=== PATIENT | male | born 1960 | race Caucasian/White ===

== ENCOUNTER 2018-01-15 19:23 | Inpatient (IN) | payer MEDICAID, OTHER ==
--- NOTE | 2018-01-15 20:09 | C.PDOC ---
History Of Present Illness Patient presents to the ER with a complaint of left leg pain. Patient has a Hx of iliac artery aneurysm, he had an MRA done in August that showed it has gotten bigger. Due to increased left leg pain, patient decided to come in for evaluation. Denies fever, chills, nausea, or vomiting. Time Seen by Provider: 01/15/18 20:09 Chief Complaint (Nursing): Medical Clearance History Per: Patient History/Exam Limitations: no limitations Onset/Duration Of Symptoms: Days Current Symptoms Are (Timing): Still Present Severity: Moderate Pain Scale Rating Of: 4 Reports Recently: Treated By A Physician Recent travel outside of the [place]: No Additional History Per: Family Past Medical History Reviewed: Historical Data, Nursing Documentation, Vital Signs Vital Signs: Last Vital Signs Temp 98 F 01/15/18 19:31 Pulse 88 01/15/18 19:31 Resp 18 01/15/18 19:31 BP 116/85 01/15/18 19:31 Pulse Ox 98 01/15/18 21:21 - Medical History PMH: Arthritis, HTN, Hypercholesterolemia, Hyperlipidemia Surgical History: No Surg Hx - [facility] Procedures APPLICATION OF SPLINT (05/15/07) Family History: States: No Known Family Hx - Social History Hx Alcohol Use: No Hx Substance Use: No - Immunization History Hx Tetanus Toxoid Vaccination: No Hx Influenza Vaccination: Yes Hx Pneumococcal Vaccination: No Review Of Systems Constitutional: Negative for: Fever, Chills Cardiovascular: Negative for: Chest Pain, Palpitations Respiratory: Negative for: Cough, Shortness of Breath Gastrointestinal: Negative for: Nausea, Vomiting Musculoskeletal: Positive for: Leg Pain Neurological: Negative for: Weakness, Numbness Physical Exam - Physical Exam Appears: Non-toxic Skin: Warm, Dry Head: Normacephalic Eye(s): bilateral: Normal Inspection Oral Mucosa: Moist Neck: Supple Chest: Symmetrical, No Tenderness Cardiovascular: Rhythm Regular Respiratory: No Rales, No Rhonchi, No Wheezing Gastrointestinal/Abdominal: Soft, No Tenderness, Other (Obese) Back: No CVA Tenderness Male Genital: No Inguinal Tenderness, No Inguinal Swelling Extremity: Capillary Refill (<2 seconds) Extremity: Bilateral: Atraumatic, Normal Color And Temperature, Normal ROM Pulses: Left Femoral: Normal, Right Femoral: Normal, Left Dorsalis Pedis: Normal , Right Dorsalis Pedis: Normal Neurological/Psych: Oriented x3, Normal Speech, Normal Cognition, Other (No focal deficits) Gait: Steady ED Course And Treatment - Laboratory Results Result Diagrams: 01/15/18 20:09 01/15/18 21:01 O2 Sat by Pulse Oximetry: 98 (Room air) Pulse Ox Interpretation: Normal Progress Note: CT abd/pel, EKG, CXR, blood work, and urinalysis ordered. Disposition Discussed With : Raman Bridges Comment: accepted the pt on his service and took over the care at 9:50 PM Doctor Will See Patient In The: Hospital Counseled Patient/Family Regarding: Studies Performed, Diagnosis - Disposition Disposition: HOSPITALIZED Disposition Time: 20:09 Condition: FAIR Forms: [facility] ([place]) - POA Present On Arrival: None - Clinical Impression Clinical Impression: Leg pain, Iliac aneurysm - Scribe Statement The provider has reviewed the documentation as recorded by the Scribe mJ Whitlock All medical record entries made by the Scribe were at my direction and personally dictated by me. I have reviewed the chart and agree that the record accurately reflects my personal performance of the history, physical exam, medical decision making, and the department course for this patient. I have also personally directed, reviewed, and agree with the discharge instructions and disposition. Decision To Admit - Pt Status Changed To: Hospital Disposition Of: Inpatient - Admit Certification Admit to Inpatient:: After my assessment, the patient will require hospitalization for at least two midnights. This is because of the severity of symptoms shown, intensity of services needed, and/or the medical risk in this patient being treated as an outpatient. - InPatient: Physician Admission Certification: I certify that this patient requires 2 or more midnights of care for the following reason:: After my assessment, the patient will require hospitalization for at least two midnights. This is because of the severity of symptoms shown, intensity of services needed, and/or the medical risk in this patient being treated as an outpatient. - . Bed Request Type: Regular Admitting Physician: Raman Bridges Patient Diagnosis: Leg pain, Iliac aneurysm
[2018-01-15 20:24] LABS: BASO # 0.1 K/uL (0.0-0.2); BASO % 0.9 % (0.0-2.0); EOS # 0.3 K/uL (0.0-0.7); EOS % 3.9 % (0.0-4.0); HEMOGLOBIN 14.9 g/dL (12.0-18.0); LYMPH # 2.2 K/uL (1.0-4.3); LYMPH % 26.4 % (20.0-40.0); MEAN CELL VOLUME 91.6 fL (80.0-94.0); MEAN CORPUSCULAR HGB CONC 33.9 g/dL (33.0-37.0); MEAN PLATELET VOLUME 8.1 fL (7.2-11.7); MONO # 0.7 K/uL (0.0-0.8); MONO % 8.3 % (0.0-10.0); NEUT # 5.1 K/uL (1.8-7.0); NEUT % 60.5 % (50.0-75.0); RBC 4.82 Mil/uL (4.40-5.90); RED CELL DISTRIBUTION WIDTH 13.8 % (11.5-14.5); WHITE BLOOD COUNT 8.5 K/uL (4.8-10.8)
[2018-01-15 20:33] LABS: PROTHROMBIN TIME 11.4 SECONDS (9.7-12.2)
[2018-01-15] MEDS ORDERED: DiphenhydrAMINE 50 mg/ml Inj IVP STA (20:55)
[2018-01-15 21:04] LABS: SQUAMOUS EPITHIAL < 1 /hpf (0-5); URINE BILIRUBIN NEGATIVE (NEGATIVE); URINE BLOOD 2+ (NEGATIVE); URINE CLARITY Clear (Clear); URINE COLOR Yellow (YELLOW); URINE GLUCOSE (UA) NORMAL (Normal); URINE LEUKOCYTE ESTERASE NEG Leu/uL (Negative); URINE PROTEIN NEGATIVE (NEGATIVE); URINE UROBILINOGEN NORMAL mg/dL (0.2-1.0)
[2018-01-15] MEDS ORDERED: DiphenhydrAMINE 50 mg/ml Inj ONE (21:07)
[2018-01-15 21:11] LABS: ALB/GLOB RATIO 1.8 (1.0-2.1); ALBUMIN 4.5 g/dL (3.5-5.0); ALT/SGPT 77 U/L (21-72); AST/SGOT 38 U/L (17-59); BLOOD UREA NITROGEN 18 mg/dL (9-20); CALCIUM 9.2 mg/dl (8.6-10.4); GFR AFRICAN-AMERICAN > 60; GFR NON-AFRICAN AMERICAN > 60
[2018-01-15] MEDS ORDERED: Iodixanol 320 mg/ml 150 ml Bottle IV ONE (21:21)
[2018-01-16] MEDS ORDERED: Iodixanol 320 MG/ML 100 ML BOTTLE IV ONE (09:11)
[2018-01-16] MEDS ORDERED: Iodixanol 320 mg/ml 150 ml Bottle IV ONE (09:12)
--- NOTE | 2018-01-16 09:18 | CP.PCM.PN ---
Subjective - Date & Time of Evaluation Date of Evaluation: 01/16/18 Time of Evaluation: 09:17 - Subjective Subjective: patient seen discussed with Dr Burch historty of dye reaction pretreatment began last night for CTA today Objective - Vital Signs/Intake and Output Vital Signs (last 24 hours): Temp Pulse Resp BP Pulse Ox 97.8 F 70 20 146/89 95 01/16/18 08:30 01/16/18 08:30 01/16/18 08:30 01/16/18 08:30 01/16/18 08:30 - Medications Medications: Current Medications Home Med (Ropinirole Hcl [Ropinirole Hcl]) 0.5 mg PO DAILY [facility] Losartan Potassium (Cozaar) 25 mg PO DAILY [facility] Metoprolol Tartrate (Lopressor) 75 mg PO BID [facility] Pneumococcal Polyvalent Vaccine (Pneumovax 23 Vaccine) 0.5 ml IM .ONCE ONE Stop: 01/18/18 10:01 Rosuvastatin Calcium (Crestor) 40 mg PO HS [facility] - Labs Labs: 01/15/18 20:09 01/15/18 21:01 PT 11.4 SECONDS (9.7-12.2) 01/15/18 20:09 INR 1.0 01/15/18 20:09 APTT 34 SECONDS (21-34) 01/15/18 20:09
--- NOTE | 2018-01-16 10:04 | RAD ---
Date of service: 01/15/2018 PROCEDURE: CHEST RADIOGRAPH, 1 VIEW HISTORY: SOB COMPARISON: None available. FINDINGS: LUNGS: Clear. PLEURA: No pneumothorax or pleural fluid seen. CARDIOVASCULAR: No radiographic findings to suggest acute or significant cardiovascular disease. OSSEOUS STRUCTURES: No significant abnormalities. VISUALIZED UPPER ABDOMEN: Normal. OTHER FINDINGS: None. IMPRESSION: No active disease. Concordant results with the preliminary interpretation rendered by the emergency department physician procedure.
--- NOTE | 2018-01-16 11:58 | CT ---
Date of service: 01/16/2018 PROCEDURE: CT Angiography Abdomen, Pelvis and Lower Extremity with Contrast HISTORY: iliac aneurysm COMPARISON: None. TECHNIQUE: Technique: CT angiography of the abdomen, pelvis and bilateral lower extremities performed in the arterial phase of enhancement. Coronal and sagittal reformats, and well as rotating MIP images of the vessels generated at the workstation. Intravenous contrast dose: 150 milliliters Visipaque 320 Radiation dose: Total exam DLP = 2785.42 MGy-cm. This CT exam was performed using one or more of the following dose reduction techniques: Automated exposure control, adjustment of the mA and/or kV according to patient size, and/or use of iterative reconstruction technique. FINDINGS: CT ANGIOGRAPHY: ABDOMINAL AORTA:: MAJOR AORTIC BRANCHES: Celiac [place]: Unremarkable. Superior mesenteric artery: Unremarkable. Inferior mesenteric artery: Unremarkable. Renal arteries: Unremarkable. PELVIC ARTERIES: Right Common Iliac: Unremarkable. Right External Iliac: Unremarkable Right Internal Iliac: Unremarkable. Left Common Iliac: There is a fusiform aneurysm of the left common iliac artery that is 6 centimeters in length and 5 centimeters in diameter. The aneurysm begins 2 centimeters from the bifurcation and terminates 2 centimeters from the left internal iliac artery. Aneurysm partially thrombosed. Left External Iliac: Unremarkable. Left Internal Iliac: Unremarkable. RIGHT LOWER EXTREMITY ARTERIES: Right Common Femoral: Common femoral artery measures 10 millimeters. Right Superficial Femoral: Superficial femoral artery measures 9.5 millimeter and is otherwise unremarkable. Right Profunda Femoris: Unremarkable. Right Popliteal:Popliteal artery is diffusely enlarged measuring 10 millimeters. Right Anterior Tibial: Unremarkable. Right Tibioperoneal Trunk: Unremarkable. Right Posterior Tibial: Unremarkable. Right Peroneal: Unremarkable. Right dorsalis pedis : Unremarkable. LEFT LOWER EXTREMITY ARTERIES: Left Common Femoral: Common femoral artery measures 10 millimeters. Otherwise unremarkable Left Superficial Femoral: SFA measures 9. Otherwise unremarkable Left Profunda Femoris: Unremarkable. Left Popliteal: Diffusely enlarged measuring 10 millimeters. Otherwise unremarkable. Left Anterior Tibial: Unremarkable. Left Tibioperoneal Trunk: Unremarkable. Left Posterior Tibial: Unremarkable. Left Peroneal: Unremarkable. Left Dorsalis pedis: Unremarkable. NON-ANGIOGRAPHIC ASPECT OF THE EXAM: LOWER THORAX: Unremarkable. LIVER: Unremarkable. No gross lesion or ductal dilatation. GALLBLADDER AND BILE DUCTS: Unremarkable. PANCREAS: Unremarkable. No gross lesion or ductal dilatation. SPLEEN: Unremarkable. ADRENALS: Unremarkable. No mass. KIDNEYS AND URETERS: Unremarkable. No hydronephrosis. No solid mass. STOMACH AND BOWEL: Unremarkable. No obstruction. No gross mural thickening. APPENDIX: Normal appendix. PERITONEUM: Unremarkable. No free fluid. No free air. LYMPH NODES: Unremarkable. No enlarged lymph nodes. BLADDER: Unremarkable. REPRODUCTIVE: Unremarkable. BONES: No acute fracture. OTHER FINDINGS: None. IMPRESSION: CT ANGIOGRAM ABDOMEN/ PELVIS: 1. Large fusiform aneurysm of the left common iliac artery beginning 2 centimeters the bifurcation. The aneurysm measures 5 centimeters in diameter by 6 centimeters in length and terminates 2 centimeters from the internal iliac artery. 2. The right common iliac external iliac artery are unremarkable. 3. The abdominal was unremarkable. CT ANGIOGRAM RIGHT LOWER EXTREMITY: 1. Unremarkable CT angiogram right lower extremity. There is no focal aneurysm. The SFA and popliteal artery diffusely enlarged as detailed. Three-vessel runoff. CT ANGIOGRAM LEFT LOWER EXTREMITY: 1. Unremarkable CT angiogram left lower extremity. There is no focal aneurysm. The SFA and popliteal artery diffusely enlarged as detailed. Three-vessel runoff.
--- NOTE | 2018-01-16 13:29 | CP.PCM.CON ---
<Lisa StevenMary - Last Filed: 01/16/18 13:20> History of Present Illness - History of Present Illness History of Present Illness: Consult Note for Dr. Burch for iliac artery aneurysm HPI: Patient is a 57 year old male with PMHx of iliac artery aneurysm, HTN, HLD , and arthritis who was sent to the ER by his PMD. Patient was not made aware of the reason he was being sent to the ER. Patient denied feeling unwell prior to hospitalization. However, patient admits to feeling diaphoretic and weak after presenting to the hospital. Patient says that he has constant pain in his left inguinal area that radiates to his ipsilateral hip. He describes the pain as a muscle spasm. He has had this complaint since his hip replacement 4-5 years ago after he was diagnosed with hip arthritis. Patient says the pain only goes away when he walks and gets worse when he sits for a while. Patient also admits to an episode of L arm numbness 4 weeks ago and then a more severe episode 3 weeks ago. He says the numbness extended from his wrist to his shoulder. Today patient has no complaints. He says at rest he has no pain in his leg. Patient denies headache, chest pain, shortness of breath, abdominal pain, nausea, vomiting, constipation, diarrhea, or dysuria. PMHx: iliac artery aneurysm, arthritis, Hypertension, Hyperlipidemia Allergies:Iodine (anaphylactic) Medications: Patient unable to recall the names of the medications but says he takes 3-5 pills every morning for hypertension, cholesterol, and muscle relaxants. PSHx: Hip replacement (2013) Hernia repair (at 2 years old) FamHx:father: CAD and of unknown cancer age 75. SocHx: stopped smoking 30-35 years ago, used to smoke 2-3 packs/day. 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 Review of Systems - Constitutional Constitutional: absent: Chills, Fever - EENT Eyes: absent: Blurred Vision Nose/Mouth/Throat: absent: Nasal Congestion - Cardiovascular Cardiovascular: absent: Chest Pain, Dyspnea, Leg Edema, Palpitations - Respiratory Respiratory: absent: Cough, Wheezing - Gastrointestinal Gastrointestinal: absent: Abdominal Pain, Constipation, Diarrhea, Nausea, Vomiting - Genitourinary Genitourinary: absent: Dysuria - Musculoskeletal Musculoskeletal: Myalgias (left thigh muscle cramping and pain ) - Integumentary Integumentary: absent: Rash Past Patient History - Infectious Disease Hx of Infectious Diseases: None - Past Medical History & Family History Past Medical History?: Yes - Past Social History Smoking Status: Former Smoker - CARDIAC Hx Cardiac Disorders: Yes Hx Hypercholesterolemia: Yes Hx Hypertension: Yes - PULMONARY Hx Respiratory Disorders: No - NEUROLOGICAL Hx Neurological Disorder: Yes Other/Comment: RESTLESS LEG SYNDROME,,,,, - HEENT Hx HEENT Problems: No - RENAL Hx Chronic Kidney Disease: No - ENDOCRINE/METABOLIC Hx Endocrine Disorders: No - HEMATOLOGICAL/ONCOLOGICAL Hx Blood Disorders: No - INTEGUMENTARY Hx Dermatological Problems: No - MUSCULOSKELETAL/RHEUMATOLOGICAL Hx Musculoskeletal Disorders: Yes Hx Arthritis: Yes Hx Falls: No - GASTROINTESTINAL Hx Gastrointestinal Disorders: No - GENITOURINARY/GYNECOLOGICAL Hx Genitourinary Disorders: No - PSYCHIATRIC Hx Psychophysiologic Disorder: No Hx Substance Use: No - SURGICAL HISTORY Hx Surgeries: Yes Hx Orthopedic Surgery: Yes (BILAT HIPS 2012 & 2014) - ANESTHESIA Hx Anesthesia: Yes Hx Anesthesia Reactions: No Has any member of the family had a problem w/ anesthesia?: No Meds Allergies/Adverse Reactions: Allergies Allergy/AdvReac Type Severity Reaction Status Date / Time iodine Allergy Severe ANAPHYLAXIS Verified 01/15/18 19:27 - Medications Medications: Current Medications Home Med (Ropinirole Hcl [Ropinirole Hcl]) 0.5 mg PO DAILY [facility] Losartan Potassium (Cozaar) 25 mg PO DAILY [facility] Last Admin: 01/16/18 09:43 Dose: 25 mg Metoprolol Tartrate (Lopressor) 75 mg PO BID [facility] Last Admin: 01/16/18 09:43 Dose: 75 mg Pneumococcal Polyvalent Vaccine (Pneumovax 23 Vaccine) 0.5 ml IM .ONCE ONE Stop: 01/18/18 10:01 Rosuvastatin Calcium (Crestor) 40 mg PO [facility] Physical Exam - Constitutional Appears: Non-toxic, No Acute Distress - Head Exam Head Exam: ATRAUMATIC, NORMAL INSPECTION, NORMOCEPHALIC - Eye Exam Eye Exam: EOMI, Normal appearance - ENT Exam ENT Exam: Mucous Membranes Moist - Neck Exam Neck exam: Positive for: Normal Inspection - Respiratory Exam Respiratory Exam: Clear to Auscultation Bilateral, NORMAL BREATHING PATTERN. absent: Rales, Rhonchi, Wheezes, Respiratory Distress, Stridor - Cardiovascular Exam Cardiovascular Exam: REGULAR RHYTHM, RRR, +S1, +S2 - GI/Abdominal Exam GI & Abdominal Exam: Normal Bowel Sounds, Soft. absent: Tenderness - Extremities Exam Extremities exam: Positive for: normal inspection. Negative for: pedal edema, tenderness - Psychiatric Exam Psychiatric exam: Normal Affect, Normal Mood - Skin Skin Exam: Intact, Normal Color, Warm Results - Vital Signs Recent Vital Signs: Last Vital Signs Temp 97.8 F 01/16/18 08:30 Pulse 70 01/16/18 08:30 Resp 20 01/16/18 08:30 BP 146/89 01/16/18 09:43 Pulse Ox 95 01/16/18 08:30 - Labs Result Diagrams: 01/15/18 20:09 01/15/18 21:01 Labs: Laboratory Results - last 24 hr 01/15/18 01/15/18 01/15/18 20:09 20:09 20:45 WBC 8.5 RBC 4.82 Hgb 14.9 Hct 44.1 MCV 91.6 MCH 31.0 MCHC 33.9 RDW 13.8 Plt Count 255 MPV 8.1 Neut % (Auto) 60.5 Lymph % (Auto) 26.4 [place] % (Auto) 8.3 Eos % (Auto) 3.9 Baso % (Auto) 0.9 Neut # (Auto) 5.1 Lymph # (Auto) 2.2 [place] # (Auto) 0.7 Eos # (Auto) 0.3 Baso # (Auto) 0.1 PT 11.4 INR 1.0 APTT 34 Sodium Potassium Chloride Carbon Dioxide Anion Gap BUN Creatinine Est GFR ( Amer) Est GFR (Non-Af Amer) Random Glucose Calcium Total Bilirubin AST ALT Alkaline Phosphatase Total Protein Albumin Globulin Albumin/Globulin Ratio Urine Color Yellow Urine Clarity Clear Urine pH 6.0 Ur Specific [place] 1.021 Urine Protein Negative Urine Glucose (UA) Normal Urine Ketones Negative Urine Blood 2+ H Urine Nitrate Negative Urine Bilirubin Negative Urine Urobilinogen Normal Ur Leukocyte Esterase Neg Urine WBC (Auto) 1 Urine RBC (Auto) 11 H Ur Squamous Epith Cells < 1 01/15/18 21:01 WBC RBC Hgb Hct MCV MCH MCHC RDW Plt Count MPV Neut % (Auto) Lymph % (Auto) [place] % (Auto) Eos % (Auto) Baso % (Auto) Neut # (Auto) Lymph # (Auto) [place] # (Auto) Eos # (Auto) Baso # (Auto) PT INR APTT Sodium 145 Potassium 4.3 Chloride 104 Carbon Dioxide 29 Anion Gap 16 BUN 18 Creatinine 1.1 Est GFR ( Amer) > 60 Est GFR (Non-Af Amer) > 60 Random Glucose 103 Calcium 9.2 Total Bilirubin 0.9 AST 38 ALT 77 H Alkaline Phosphatase 78 Total Protein 7.0 Albumin 4.5 Globulin 2.5 Albumin/Globulin Ratio 1.8 Urine Color Urine Clarity Urine pH Ur Specific [place] Urine Protein Urine Glucose (UA) Urine Ketones Urine Blood Urine Nitrate Urine Bilirubin Urine Urobilinogen Ur Leukocyte Esterase Urine WBC (Auto) Urine RBC (Auto) Ur Squamous Epith Cells Assessment & Plan - Assessment and Plan (Free Text) Assessment: Left Common Iliac Artery Aneurysm CTA: 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 aneurysm measures 5cm in diameter by 6cm in length and terminates 2 cm from the internal iliac artery f/u ECHO Surgery, Dr. Ivan consulted Discussed with Dr. Burch <Ze Burch - Last Filed: 01/17/18 00:32> Meds - Medications Medications: Current Medications Home Med (Ropinirole Hcl [Ropinirole Hcl]) 0.5 mg PO DAILY [facility] Losartan Potassium (Cozaar) 25 mg PO DAILY [facility] Last Admin: 01/16/18 09:43 Dose: 25 mg Metoprolol Tartrate (Lopressor) 75 mg PO BID [facility] Last Admin: 01/16/18 17:41 Dose: 75 mg Pneumococcal Polyvalent Vaccine (Pneumovax 23 Vaccine) 0.5 ml IM .ONCE ONE Stop: 01/18/18 10:01 Rosuvastatin Calcium (Crestor) 40 mg PO HS [facility] Last Admin: 01/16/18 21:23 Dose: 40 mg Results - Vital Signs Recent Vital Signs: Last Vital Signs Temp 98 F 01/16/18 23:48 Pulse 64 01/16/18 23:48 Resp 20 01/16/18 23:48 BP 127/80 01/16/18 23:48 Pulse Ox 97 01/16/18 23:48 - Labs Result Diagrams: 01/15/18 20:09 01/15/18 21:01 Assessment & Plan - Assessment and Plan (Free Text) Assessment: Patient seen and evaluated personally by me For stress test in am
--- NOTE | 2018-01-16 20:44 | CP.PCM.HP ---
History of Present Illness - History of Present Illness History of Present Illness: Chief complaint: Left leg pain HPI: 57-year-old male with a history of hypertension, hypercholesteremia, arthritis, bilateral hip replacement, leg pain, and the left leg cramps more than the right leg, came to the opposite the worsening pain in the left leg, and lower abdomen area. Patient has no chest pain. He denies any nausea vomiting. No GI symptoms. Past medical history: Hypertension hypercholesterolemia restless leg syndrome, arthritis. Surgical history: Bilateral hip replacement. History hernia repair. Medications reviewed from the chart. Allergies no known drug allergy except intravenous iodine Family history: Father had a history of colon cancer. Mother history of renal failure. Personal history: Nonsmoker, nonalcoholic, full-time working. Functional capacity is normal. Review of system: Noted from the chart. Denies any nausea vomiting, but currently complaining of headache, did not sleep well last night, no chest pain, no shortness of breath noted, denies any diarrhea, but left lower quadrant pain, and also in the leg pain noted on the left side. On examination: Vital signs stable. Chest bilateral good air entry. Regular heart sound nontender abdomen Next images 1+ pedal edema bilaterally noted Patient's labs reviewed Nonspecific CAT scan of the abdomen and pelvis showing evidence of large fusiform aneurysm involving the left common iliac artery beginning at 2 cm at the bifurcation measures 5 cm in diameter by 6 cm in length terminates at the 2 cm from the iliac artery internal. Otherwise unremarkable. Also enlargement of the SFA and popliteal artery on the right side noted Assessment and recommendation: 57-year-old male with a history of hypertension and hypercholesteremia osteoarthritis bilateral hip replacement admitted to the hospital with ongoing pain in the left lower quadrant. Secondary to possibly aneurysm involving the left iliac artery. Patient is currently being seen by the vascular surgery and cardiology. Blood pressure control. IV fluid. Possible intervention surgically. Cardiac clearance. DVT GI prophylaxis will follow-up the patient Present on Admission - Present on Admission Any Indicators Present on Admission: No History of DVT/PE: No History of Uncontrolled Diabetes: No Urinary Catheter: No Decubitus Ulcer Present: No Past Patient History - Infectious Disease Hx of Infectious Diseases: None - Past Medical History & Family History Past Medical History?: Yes - Past Social History Smoking Status: Former Smoker - CARDIAC Hx Cardiac Disorders: Yes Hx Hypercholesterolemia: Yes Hx Hypertension: Yes - PULMONARY Hx Respiratory Disorders: No - NEUROLOGICAL Hx Neurological Disorder: Yes Other/Comment: RESTLESS LEG SYNDROME,,,,, - HEENT Hx HEENT Problems: No - RENAL Hx Chronic Kidney Disease: No - ENDOCRINE/METABOLIC Hx Endocrine Disorders: No - HEMATOLOGICAL/ONCOLOGICAL Hx Blood Disorders: No - INTEGUMENTARY Hx Dermatological Problems: No - MUSCULOSKELETAL/RHEUMATOLOGICAL Hx Musculoskeletal Disorders: Yes Hx Arthritis: Yes Hx Falls: No - GASTROINTESTINAL Hx Gastrointestinal Disorders: No - GENITOURINARY/GYNECOLOGICAL Hx Genitourinary Disorders: No - PSYCHIATRIC Hx Psychophysiologic Disorder: No Hx Substance Use: No - SURGICAL HISTORY Hx Surgeries: Yes Hx Orthopedic Surgery: Yes (BILAT HIPS 2013 & 2014) - ANESTHESIA Hx Anesthesia: Yes Hx Anesthesia Reactions: No Has any member of the family had a problem w/ anesthesia?: No Meds Home Medications: Home Medication List Medication Instructions Recorded Confirmed Type Ropinirole HCl 0.5 mg PO DAILY #30 tablet 01/16/18 Rx Allergies/Adverse Reactions: Allergies Allergy/AdvReac Type Severity Reaction Status Date / Time iodine Allergy Severe ANAPHYLAXIS Verified 01/15/18 19:27 Results - Vital Signs Recent Vital Signs: Last Vital Signs Temp 98.3 F 01/16/18 16:00 Pulse 71 01/16/18 16:00 Resp 20 01/16/18 16:00 BP 142/80 01/16/18 17:41 Pulse Ox 93 L 01/16/18 16:00 - Labs Result Diagrams: 01/15/18 20:09 01/15/18 21:01 Labs: Laboratory Results - last 24 hr 01/15/18 01/15/18 20:45 21:01 Sodium 145 Potassium 4.3 Chloride 104 Carbon Dioxide 29 Anion Gap 16 BUN 18 Creatinine 1.1 Est GFR ( Amer) > 60 Est GFR (Non-Af Amer) > 60 Random Glucose 103 Calcium 9.2 Total Bilirubin 0.9 AST 38 ALT 77 H Alkaline Phosphatase 78 Total Protein 7.0 Albumin 4.5 Globulin 2.5 Albumin/Globulin Ratio 1.8 Urine Color Yellow Urine Clarity Clear Urine pH 6.0 Ur Specific [place] 1.021 Urine Protein Negative Urine Glucose (UA) Normal Urine Ketones Negative Urine Blood 2+ H Urine Nitrate Negative Urine Bilirubin Negative Urine Urobilinogen Normal Ur Leukocyte Esterase Neg Urine WBC (Auto) 1 Urine RBC (Auto) 11 H Ur Squamous Epith Cells < 1
--- NOTE | 2018-01-17 07:17 | CP.PCM.PN ---
Subjective - Date & Time of Evaluation Date of Evaluation: 01/17/18 Time of Evaluation: 06:30 - Subjective Subjective: Vascular Surgery Note for Dr. Ivan Patient seen and examined at bedside. No acute event overnight. Patient is NPO for stress test today with Cardiology. He has no complaints at this time. Objective - Vital Signs/Intake and Output Vital Signs (last 24 hours): Temp Pulse Resp BP Pulse Ox 98 F 64 20 127/80 97 01/16/18 23:48 01/16/18 23:48 01/16/18 23:48 01/16/18 23:48 01/16/18 23:48 - Medications Medications: Current Medications Home Med (Ropinirole Hcl [Ropinirole Hcl]) 0.5 mg PO DAILY [facility] Losartan Potassium (Cozaar) 25 mg PO DAILY [facility] Last Admin: 01/16/18 09:43 Dose: 25 mg Metoprolol Tartrate (Lopressor) 75 mg PO BID [facility] Last Admin: 01/16/18 17:41 Dose: 75 mg Pneumococcal Polyvalent Vaccine (Pneumovax 23 Vaccine) 0.5 ml IM .ONCE ONE Stop: 01/18/18 10:01 Rosuvastatin Calcium (Crestor) 40 mg PO HS [facility] Last Admin: 01/16/18 21:23 Dose: 40 mg - Labs Labs: 01/15/18 20:09 01/15/18 21:01 PT 11.4 SECONDS (9.7-12.2) 01/15/18 20:09 INR 1.0 01/15/18 20:09 APTT 34 SECONDS (21-34) 01/15/18 20:09 - Constitutional Appears: No Acute Distress - Head Exam Head Exam: ATRAUMATIC, NORMOCEPHALIC - Eye Exam Eye Exam: EOMI, Normal appearance - ENT Exam ENT Exam: Mucous Membranes Moist - Respiratory Exam Respiratory Exam: NORMAL BREATHING PATTERN - Cardiovascular Exam Cardiovascular Exam: REGULAR RHYTHM - GI/Abdominal Exam GI & Abdominal Exam: Soft, Normal Bowel Sounds. 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 Moncho Guzman PGY2
[2018-01-17 07:57] LABS: BASO % 0.2 % (0.0-2.0); HEMOGLOBIN 15.3 g/dL (12.0-18.0); LYMPH # 1.8 K/uL (1.0-4.3); LYMPH % 13.8 % (20.0-40.0); MEAN CELL VOLUME 91.6 fL (80.0-94.0); MEAN CORPUSCULAR HEMOGLOBIN 31.5 pg (27.0-31.0); MEAN CORPUSCULAR HGB CONC 34.4 g/dL (33.0-37.0); MEAN PLATELET VOLUME 8.2 fL (7.2-11.7); MONO # 0.7 K/uL (0.0-0.8); MONO % 5.7 % (0.0-10.0); NEUT # 10.3 K/uL (1.8-7.0); NEUT % 80.3 % (50.0-75.0); RBC 4.87 Mil/uL (4.40-5.90); RED CELL DISTRIBUTION WIDTH 13.9 % (11.5-14.5); WHITE BLOOD COUNT 12.8 K/uL (4.8-10.8)
[2018-01-17 08:15] LABS: ALB/GLOB RATIO 1.8 (1.0-2.1); ALBUMIN 4.4 g/dL (3.5-5.0); ALT/SGPT 62 U/L (21-72); AST/SGOT 27 U/L (17-59); BLOOD UREA NITROGEN 21 mg/dL (9-20); CALCIUM 9.2 mg/dl (8.6-10.4); GFR AFRICAN-AMERICAN > 60; GFR NON-AFRICAN AMERICAN > 60
--- NOTE | 2018-01-17 12:02 | CARD ---
APPROVED REPORT Date of service: 01/16/2018 EXAM: Two-dimensional and M-mode echocardiogram with Doppler and color Doppler. INDICATION PVD 2D DIMENSIONS IVSd1.1 (0.7-1.1cm)LVDd4.4 (3.9-5.9cm) PWd1.0 (0.7-1.1cm)LVDs2.7 (2.5-4.0cm) FS (%) 38.8 %LVEF (%)69.4 (>50%) M-Mode DIMENSIONS Left Atrium (MM)3.12 (2.5-4.0cm)IVSd1.41 (0.7-1.1cm) Aortic Root4.36 (2.2-3.7cm)LVDd5.76 (4.0-5.6cm) Aortic Cusp Exc.2.22 (1.5-2.0cm)PWd1.10 (0.7-1.1cm) FS (%) 32 %LVDs3.94 (2.0-3.8cm) LVEF (%)59 (>50%) Mitral Valve MV E Dspyxuhc52.0cm/sMV A Kwpfshta46.6cm/sE/A ratio1.0 TDI E/Lateral E'0.0E/Medial E'0.0 Tricuspid Valve TR Peak Wfqtstyj474vn/sTR Peak Gr.75bpSgGQZK05itOa LEFT VENTRICLE The left ventricle is normal size. There is normal left ventricular wall thickness. The left ventricular function is normal. The left ventricular ejection fraction is within the normal range. No regional wall motion abnormalities noted. The left ventricular diastolic function is normal. No left ventricle thrombus noted on this study. There is no ventricular septal defect visualized. There is no left ventricular aneurysm. There is no mass noted in the left ventricle. RIGHT VENTRICLE The right ventricle is normal size. There is normal right ventricular wall thickness. The right ventricular systolic function is normal. ATRIA The left atrium size is normal. The right atrium size is normal. The interatrial septum is intact with no evidence for an atrial septal defect. AORTIC VALVE The aortic valve is normal in structure and function. No aortic regurgitation is present. There is no aortic valvular stenosis. There is no aortic valvular vegetation. MITRAL VALVE The mitral valve is normal in structure and function. There is no evidence of mitral valve prolapse. There is no mitral valve stenosis. Mitral regurgitation is mild. TRICUSPID VALVE The tricuspid valve is normal in structure and function. There is no tricuspid valve regurgitation noted. There is no tricuspid valve prolapse or vegetation. There is no tricuspid valve stenosis. PULMONIC VALVE The pulmonary valve is normal in structure and function. There is no pulmonic valvular regurgitation. There is no pulmonic valvular stenosis. GREAT VESSELS The aortic root is mildly enlarged. The ascending aorta is normal in size. The pulmonary artery is normal. The IVC is normal in size and collapses >50% with inspiration. PERICARDIAL EFFUSION The pericardium appears normal. There is no pleural effusion. <Conclusion> The left ventricular function is normal. The left ventricular ejection fraction is within the normal range. No regional wall motion abnormalities noted. Mitral regurgitation is mild. The aortic root is mildly enlarged.
--- NOTE | 2018-01-17 12:16 | CARD ---
APPROVED REPORT Date of service: 01/15/2018 EKG Measurement Heart [id number] <Conclusion> Normal sinus rhythm with sinus arrhythmia Normal ECG
--- NOTE | 2018-01-17 13:04 | CP.PCM.PN ---
<Lisa Steven - Last Filed: 01/17/18 12:59> Subjective - Date & Time of Evaluation Date of Evaluation: 01/17/18 Time of Evaluation: 10:00 - Subjective Subjective: PGY2- Progress Note for Dr. Burch Patient seen and examined at bedside. Patient in no acute distress. Patient denies headache, chest pain, shortness of breath, abdominal pain, nausea, vomiting, constipation, diarrhea, or dysuria. Objective - Vital Signs/Intake and Output Vital Signs (last 24 hours): Temp Pulse Resp BP Pulse Ox 97.5 F L 65 20 155/98 H 99 01/17/18 08:00 01/17/18 08:00 01/17/18 08:00 01/17/18 11:09 01/17/18 08:00 - Medications Medications: Current Medications Home Med (Ropinirole Hcl [Ropinirole Hcl]) 0.5 mg PO DAILY [facility] Losartan Potassium (Cozaar) 25 mg PO DAILY [facility] Last Admin: 01/17/18 11:10 Dose: 25 mg Metoprolol Tartrate (Lopressor) 75 mg PO BID [facility] Last Admin: 01/17/18 11:09 Dose: 75 mg Pneumococcal Polyvalent Vaccine (Pneumovax 23 Vaccine) 0.5 ml IM .ONCE ONE Stop: 01/18/18 10:01 Rosuvastatin Calcium (Crestor) 40 mg PO [facility] Last Admin: 01/16/18 21:23 Dose: 40 mg - Labs Labs: 01/17/18 07:47 01/17/18 07:47 PT 11.4 SECONDS (9.7-12.2) 01/15/18 20:09 INR 1.0 01/15/18 20:09 APTT 34 SECONDS (21-34) 01/15/18 20:09 - Additional Findings Additional findings: - Constitutional Appears: Non-toxic, No Acute Distress - Head Exam Head Exam: ATRAUMATIC, NORMAL INSPECTION, NORMOCEPHALIC - Eye Exam Eye Exam: EOMI, Normal appearance - ENT Exam ENT Exam: Mucous Membranes Moist - Neck Exam Neck exam: Positive for: Normal Inspection - Respiratory Exam Respiratory Exam: Clear to Auscultation Bilateral, NORMAL BREATHING PATTERN. absent: Rales, Rhonchi, Wheezes, Respiratory Distress, Stridor - Cardiovascular Exam Cardiovascular Exam: REGULAR RHYTHM, RRR, +S1, +S2 - GI/Abdominal Exam GI & Abdominal Exam: Normal Bowel Sounds, Soft. absent: Tenderness - Extremities Exam Extremities exam: Positive for: normal inspection. Negative for: pedal edema, tenderness - Psychiatric Exam Psychiatric exam: Normal Affect, Normal Mood - Skin Skin Exam: Intact, Normal Color, Warm Assessment and Plan - Assessment and Plan (Free Text) Assessment: Left Common Iliac Artery Aneurysm CTA: 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 aneurysm measures 5cm in diameter by 6cm in length and terminates 2 cm from the internal iliac artery Surgery, Dr. Ivan consulted - possible endovascular procedure on sunday pending medical optimization echo: left ventricular function is normal, left ventricular ejection fraction within normal range. no regional wall motion abnormalities, mitral regurg is mild. aortic root is mildly enlarged. stress test today Discussed with Dr. Burch <Ze Burch - Last Filed: 01/17/18 23:29> Objective - Vital Signs/Intake and Output Vital Signs (last 24 hours): Temp Pulse Resp BP Pulse Ox 98.5 F 65 20 122/74 95 01/17/18 16:00 01/17/18 16:00 01/17/18 16:00 01/17/18 17:19 01/17/18 16:00 Intake and Output: 01/17/18 01/18/18 18:59 06:59 Intake Total 480 Balance 480 - Medications Medications: Current Medications Home Med (Patient's Own Medication) 1 tab PO DAILY@2100 [facility] Last Admin: 01/17/18 21:20 Dose: 1 tab Losartan Potassium (Cozaar) 25 mg PO DAILY [facility] Last Admin: 01/17/18 11:10 Dose: 25 mg Metoprolol Tartrate (Lopressor) 75 mg PO BID [facility] Last Admin: 01/17/18 17:19 Dose: 75 mg Pneumococcal Polyvalent Vaccine (Pneumovax 23 Vaccine) 0.5 ml IM .ONCE ONE Stop: 01/18/18 10:01 Rosuvastatin Calcium (Crestor) 40 mg PO [facility] Last Admin: 01/17/18 21:18 Dose: 40 mg - Labs Labs: 01/17/18 07:47 01/17/18 07:47 PT 11.4 SECONDS (9.7-12.2) 01/15/18 20:09 INR 1.0 01/15/18 20:09 APTT 34 SECONDS (21-34) 01/15/18 20:09 Assessment and Plan - Assessment and Plan (Free Text) Assessment: Patient seen and evaluated personally me Plan of care d/w the certified medical transcriptionist and as documented Stress test: No evidence of stress induced ischemia
[2018-01-17] MEDS ORDERED: Patient's Own Medication - Tablet/Capusle PO SCH (14:00)
[2018-01-17] MEDS: Patient's Own Medication - Tablet/Capusle PO SCH (21:20)
--- NOTE | 2018-01-18 00:21 | CP.PCM.PN ---
Subjective - Date & Time of Evaluation Date of Evaluation: 01/17/18 Time of Evaluation: 19:00 - Subjective Subjective: Patient seen by escrow representative. Patient is medically cleared, had a stress test today. Discussed with the patient as well as the patient's family. Patient is initially not willing to have a surgical intervention, but finally he agreed to have intervention for the left iliac artery aneurysm. We will continue the current treatment glucose control and also blood pressure control will follow the Objective - Vital Signs/Intake and Output Vital Signs (last 24 hours): Temp Pulse Resp BP Pulse Ox 98.5 F 65 20 122/74 95 01/17/18 16:00 01/17/18 16:00 01/17/18 16:00 01/17/18 17:19 01/17/18 16:00 Intake and Output: 01/17/18 01/18/18 18:59 06:59 Intake Total 480 Balance 480 - Medications Medications: Current Medications Home Med (Patient's Own Medication) 1 tab PO DAILY@2100 [facility] Last Admin: 01/17/18 21:20 Dose: 1 tab Losartan Potassium (Cozaar) 25 mg PO DAILY [facility] Last Admin: 01/17/18 11:10 Dose: 25 mg Metoprolol Tartrate (Lopressor) 75 mg PO BID [facility] Last Admin: 01/17/18 17:19 Dose: 75 mg Pneumococcal Polyvalent Vaccine (Pneumovax 23 Vaccine) 0.5 ml IM .ONCE ONE Stop: 01/18/18 10:01 Rosuvastatin Calcium (Crestor) 40 mg PO [facility] Last Admin: 01/17/18 21:18 Dose: 40 mg - Labs Labs: 01/17/18 07:47 01/17/18 07:47 PT 11.4 SECONDS (9.7-12.2) 01/15/18 20:09 INR 1.0 01/15/18 20:09 APTT 34 SECONDS (21-34) 01/15/18 20:09
[2018-01-18] MEDS ORDERED: Pneumococcal 23-Valent Vaccine IM ONE (10:00)
[2018-01-18] MEDS: Patient's Own Medication - Tablet/Capusle PO SCH (21:25)
[2018-01-19 07:11] LABS: PROTHROMBIN TIME 11.4 SECONDS (9.7-12.2)
--- NOTE | 2018-01-19 07:44 | CP.PCM.PN ---
Subjective - Date & Time of Evaluation Date of Evaluation: 01/19/18 Time of Evaluation: 07:41 - Subjective Subjective: Vascular Surgery Progress note for Dr. Ivan Pt seen and examined this am at bedside no acute events overnight. Pt will stay in the hospital for iliac aneurism repair on sunday we discussed his iodine allergy and our pretreatment plans. Denies any chest pain, SOB, nausea vomiting or diarrhea. He is ambulating. No new complaints at this time. Objective - Vital Signs/Intake and Output Vital Signs (last 24 hours): Temp Pulse Resp BP Pulse Ox 98 F 60 20 131/83 98 01/18/18 23:48 01/18/18 23:48 01/18/18 23:48 01/18/18 23:48 01/18/18 23:48 Intake and Output: 01/19/18 01/19/18 06:59 18:59 Intake Total 480 Balance 480 - Medications Medications: Current Medications Home Med (Patient's Own Medication) 1 tab PO DAILY@2100 [facility] Last Admin: 01/18/18 21:25 Dose: 1 tab Losartan Potassium (Cozaar) 25 mg PO DAILY [facility] Last Admin: 01/18/18 09:59 Dose: 25 mg Metoprolol Tartrate (Lopressor) 75 mg PO BID [facility] Last Admin: 01/18/18 17:41 Dose: 75 mg Rosuvastatin Calcium (Crestor) 40 mg PO HS [facility] Last Admin: 01/18/18 21:07 Dose: 40 mg - Labs Labs: 01/17/18 07:47 01/17/18 07:47 PT 11.4 SECONDS (9.7-12.2) 01/19/18 07:00 INR 1.0 01/19/18 07:00 APTT 38 SECONDS (21-34) H 01/19/18 07:00 - Constitutional Appears: No Acute Distress - Head Exam Head Exam: ATRAUMATIC, NORMOCEPHALIC - Eye Exam Eye Exam: EOMI, Normal appearance - ENT Exam ENT Exam: Mucous Membranes Moist - Respiratory Exam Respiratory Exam: NORMAL BREATHING PATTERN - Cardiovascular Exam Cardiovascular Exam: REGULAR RHYTHM - GI/Abdominal Exam GI & Abdominal Exam: Soft, Normal Bowel Sounds. 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 Moncho Moulton PGY3
[2018-01-19] MEDS: Patient's Own Medication - Tablet/Capusle PO SCH (21:10)
--- NOTE | 2018-01-20 07:30 | CP.PCM.PN ---
Subjective - Date & Time of Evaluation Date of Evaluation: 01/19/18 Time of Evaluation: 14:10 - Subjective Subjective: Patient seen and examined at bedside. Patient in no acute distress. Patient denies headache, chest pain, shortness of breath, abdominal pain, nausea, vomiting, constipation, diarrhea, or dysuria. Physical Examination - Additional Findings Additional findings: - Constitutional Appears: Non-toxic, No Acute Distress - Head Exam Head Exam: ATRAUMATIC, NORMAL INSPECTION, NORMOCEPHALIC - Eye Exam Eye Exam: EOMI, Normal appearance - ENT Exam ENT Exam: Mucous Membranes Moist - Neck Exam Neck exam: Positive for: Normal Inspection - Respiratory Exam Respiratory Exam: Clear to Auscultation Bilateral, NORMAL BREATHING PATTERN. absent: Rales, Rhonchi, Wheezes, Respiratory Distress, Stridor - Cardiovascular Exam Cardiovascular Exam: REGULAR RHYTHM, RRR, +S1, +S2 - GI/Abdominal Exam GI & Abdominal Exam: Normal Bowel Sounds, Soft. absent: Tenderness - Extremities Exam Extremities exam: Positive for: normal inspection. Negative for: pedal edema, tenderness - Psychiatric Exam Psychiatric exam: Normal Affect, Normal Mood - Skin Skin Exam: Intact, Normal Color, Warm Objective - Vital Signs/Intake and Output Vital Signs (last 24 hours): Temp Pulse Resp BP Pulse Ox 98.0 F 68 20 129/67 96 01/20/18 00:00 01/20/18 00:00 01/20/18 00:00 01/20/18 00:00 01/20/18 00:00 Intake and Output: 01/20/18 01/20/18 06:59 18:59 Intake Total 600 Balance 600 - Medications Medications: Current Medications Home Med (Patient's Own Medication) 1 tab PO DAILY@2100 [facility] Last Admin: 01/19/18 21:10 Dose: 1 tab Losartan Potassium (Cozaar) 25 mg PO DAILY [facility] Last Admin: 01/19/18 10:35 Dose: 25 mg Metoprolol Tartrate (Lopressor) 75 mg PO BID [facility] Last Admin: 01/19/18 17:25 Dose: 75 mg Rosuvastatin Calcium (Crestor) 40 mg PO HS [facility] Last Admin: 01/19/18 21:10 Dose: 40 mg - Labs Labs: 01/17/18 07:47 01/17/18 07:47 PT 11.4 SECONDS (9.7-12.2) 01/19/18 07:00 INR 1.0 01/19/18 07:00 APTT 38 SECONDS (21-34) H 01/19/18 07:00 Assessment and Plan - Assessment and Plan (Free Text) Assessment: CTA: 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 aneurysm measures 5cm in diameter by 6cm in length and terminates 2 cm from the internal iliac artery Surgery, Dr. Ivan consulted - possible endovascular procedure on sunday echo: left ventricular function is normal, left ventricular ejection fraction within normal range. no regional wall motion abnormalities, mitral regurg is mild. aortic root is mildly enlarged. stress test Normal This patient assessed as low to intermediate risk for cardiac events for endovascular or open repair of his Left Iliac artery aneurysm
--- NOTE | 2018-01-20 12:23 | CP.PCM.PN ---
Subjective - Date & Time of Evaluation Date of Evaluation: 01/20/18 Time of Evaluation: 12:22 - Subjective Subjective: Vascular Surgery Progress note for Dr. Ivan Pt seen and examined this am at bedside no acute events overnight. Pt will stay in the hospital for iliac aneurism repair on sunday we discussed his iodine allergy and our pretreatment plans. Denies any chest pain, SOB, nausea vomiting or diarrhea. He is ambulating. No new complaints at this time. Objective - Vital Signs/Intake and Output Vital Signs (last 24 hours): Temp Pulse Resp BP Pulse Ox 98.1 F 73 20 118/75 96 01/20/18 08:31 01/20/18 08:31 01/20/18 08:31 01/20/18 09:24 01/20/18 08:31 Intake and Output: 01/20/18 01/20/18 06:59 18:59 Intake Total 600 Balance 600 - Medications Medications: Current Medications Diphenhydramine HCl (Benadryl) 50 mg IVP ONCE ONE Stop: 01/21/18 06:31 Home Med (Patient's Own Medication) 1 tab PO DAILY@2100 [facility] Last Admin: 01/19/18 21:10 Dose: 1 tab Losartan Potassium (Cozaar) 25 mg PO DAILY [facility] Last Admin: 01/20/18 09:25 Dose: 25 mg Methylprednisolone (Solu-Medrol) 40 mg IV ONCE ONE Stop: 01/20/18 18:31 Methylprednisolone (Solu-Medrol) 40 mg IV ONCE ONE Stop: 01/21/18 12:31 Methylprednisolone (Solu-Medrol) 40 mg IV ONCE ONE Stop: 01/21/18 06:31 Metoprolol Tartrate (Lopressor) 75 mg PO BID [facility] Rosuvastatin Calcium (Crestor) 40 mg PO HS [facility] Last Admin: 01/19/18 21:10 Dose: 40 mg - Labs Labs: 01/17/18 07:47 01/17/18 07:47 PT 11.4 SECONDS (9.7-12.2) 01/19/18 07:00 INR 1.0 01/19/18 07:00 APTT 38 SECONDS (21-34) H 01/19/18 07:00 - Constitutional Appears: Well, Non-toxic, No Acute Distress - Head Exam Head Exam: ATRAUMATIC, NORMAL INSPECTION, NORMOCEPHALIC - Respiratory Exam Respiratory Exam: Clear to Ausculation Bilateral, NORMAL BREATHING PATTERN - Cardiovascular Exam Cardiovascular Exam: REGULAR RHYTHM, +S1, +S2. absent: Murmur - GI/Abdominal Exam GI & Abdominal Exam: Soft, Normal Bowel Sounds. 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 Moncho Mayorga PGY1
[2018-01-20] MEDS ORDERED: MethylPREDNISolone 40 mg Vial IV ONE (18:30)
--- NOTE | 2018-01-20 18:56 | CP.PCM.PN ---
Subjective - Date & Time of Evaluation Date of Evaluation: 01/20/18 Time of Evaluation: 18:56 - Subjective Subjective: Patient comfortable. He is not in any distress. Eating well. He is n.p.o. for tonight. We will continue the current treatment. Objective - Vital Signs/Intake and Output Vital Signs (last 24 hours): Temp Pulse Resp BP Pulse Ox 98.2 F 69 20 127/87 95 01/20/18 16:00 01/20/18 16:00 01/20/18 16:00 01/20/18 18:07 01/20/18 16:00 Intake and Output: 01/20/18 01/20/18 06:59 18:59 Intake Total 600 Balance 600 - Medications Medications: Current Medications Diphenhydramine HCl (Benadryl) 50 mg IVP ONCE ONE Stop: 01/21/18 06:31 Home Med (Patient's Own Medication) 1 tab PO DAILY@2100 [facility] Last Admin: 01/19/18 21:10 Dose: 1 tab Losartan Potassium (Cozaar) 25 mg PO DAILY [facility] Last Admin: 01/20/18 09:25 Dose: 25 mg Methylprednisolone (Solu-Medrol) 40 mg IV ONCE ONE Stop: 01/21/18 12:31 Methylprednisolone (Solu-Medrol) 40 mg IV ONCE ONE Stop: 01/21/18 06:31 Metoprolol Tartrate (Lopressor) 75 mg PO BID [facility] Last Admin: 01/20/18 18:07 Dose: 75 mg Rosuvastatin Calcium (Crestor) 40 mg PO HS [facility] Last Admin: 01/19/18 21:10 Dose: 40 mg - Labs Labs: 01/17/18 07:47 01/17/18 07:47 PT 11.4 SECONDS (9.7-12.2) 01/19/18 07:00 INR 1.0 01/19/18 07:00 APTT 38 SECONDS (21-34) H 01/19/18 07:00
[2018-01-20] MEDS: Patient's Own Medication - Tablet/Capusle PO SCH (21:35)
--- NOTE | 2018-01-20 23:15 | CP.PCM.PN ---
Subjective - Date & Time of Evaluation Date of Evaluation: 01/20/18 Time of Evaluation: 10:20 - Subjective Subjective: Patient for OR tmorrow No cardiac events noted Objective - Vital Signs/Intake and Output Vital Signs (last 24 hours): Temp Pulse Resp BP Pulse Ox 98.2 F 69 20 127/87 95 01/20/18 16:00 01/20/18 16:00 01/20/18 16:00 01/20/18 18:07 01/20/18 16:00 Intake and Output: 01/20/18 01/21/18 18:59 06:59 Intake Total 600 Balance 600 - Medications Medications: Current Medications Diphenhydramine HCl (Benadryl) 50 mg IVP ONCE ONE Stop: 01/21/18 06:31 Home Med (Patient's Own Medication) 1 tab PO DAILY@2100 [facility] Last Admin: 01/20/18 21:35 Dose: 1 tab Losartan Potassium (Cozaar) 25 mg PO DAILY [facility] Last Admin: 01/20/18 09:25 Dose: 25 mg Methylprednisolone (Solu-Medrol) 40 mg IV ONCE ONE Stop: 01/21/18 12:31 Methylprednisolone (Solu-Medrol) 40 mg IV ONCE ONE Stop: 01/21/18 06:31 Metoprolol Tartrate (Lopressor) 75 mg PO BID [facility] Last Admin: 01/20/18 18:07 Dose: 75 mg Rosuvastatin Calcium (Crestor) 40 mg PO HS [facility] Last Admin: 01/20/18 21:35 Dose: 40 mg - Labs Labs: 01/17/18 07:47 01/17/18 07:47 PT 11.4 SECONDS (9.7-12.2) 01/19/18 07:00 INR 1.0 01/19/18 07:00 APTT 38 SECONDS (21-34) H 01/19/18 07:00
[2018-01-21] MEDS ORDERED: DiphenhydrAMINE 50 mg/ml Inj IVP ONE (06:30)
[2018-01-21] MEDS ORDERED: MethylPREDNISolone 40 mg Vial IV ONE ×2 (06:30→12:30)
[2018-01-21 07:23] LABS: MEAN CORPUSCULAR HEMOGLOBIN 31.8 pg (27.0-31.0); MEAN PLATELET VOLUME 8.3 fL (7.2-11.7); RBC 5.43 Mil/uL (4.40-5.90); RED CELL DISTRIBUTION WIDTH 13.4 % (11.5-14.5); WHITE BLOOD COUNT 9.4 K/uL (4.8-10.8)
[2018-01-21 07:30] LABS: HEMOGLOBIN 17.3 g/dL (12.0-18.0)
[2018-01-21 07:41] LABS: BLOOD UREA NITROGEN 22 mg/dL (9-20); CALCIUM 9.4 mg/dl (8.6-10.4); GFR AFRICAN-AMERICAN > 60; GFR NON-AFRICAN AMERICAN > 60
[2018-01-21] MEDS ORDERED: Papaverine Hydrochloride 30 mg/ml (2ml) ONE (07:47)
[2018-01-21] MEDS ORDERED: Iodixanol 320 MG/ML 200 ML BOTTLE IV ONE ×2 (07:47→10:02)
[2018-01-21] MEDS ORDERED: HEPARIN-NS 5,000 UNITS/500 ML 10,000 UNIT/1,000 ML BAG IV ONE ×3 (07:47→11:45)
[2018-01-21] MEDS ORDERED: ceFAZolin IV 2 gm in Dextrose 2 GM/50 ML BAG IVPB ONE (08:26)
[2018-01-21] MEDS ORDERED: Propofol 10 mg/ml Inj (20 ML) ONE (09:40)
[2018-01-21] MEDS ORDERED: Midazolam 2 MG/2 ML VIAL ONE (09:40)
[2018-01-21] MEDS ORDERED: Rocuronium 10 mg/ml (10 ml) ONE (09:40)
[2018-01-21] MEDS ORDERED: Neostigmine Methylsulfate 3mg/3ml Syringe IV ONE (12:32)
[2018-01-21] MEDS ORDERED: HYDROmorphone 0.5 mg/0.5 ml ISec IVP PRN (13:04)
--- NOTE | 2018-01-21 13:05 | PCM.SURG1 ---
Surgeon's Initial Post Op Note - Surgeon's Notes Surgeon: Dr. Ivan Hat Brim Curler: Dr. Moulton PGY3, Tracy MS3 Type of Anesthesia: General Endo Pre-Operative Diagnosis: Left common iliac aneurysm Operative Findings: Tortuous left common iliac placement of Main body [id number] each limb [id number], with proximal [id number] X120mm left iliac stent Post-Operative Diagnosis: Left common iliac aneurysm Operation Performed: Endovascular stent/grafting of distal aortic aneurism and bilateral iliac arteries. Specimen/Specimens Removed: None Estimated Blood Loss: EBL {In ML}: 750 Blood Products Given: N/A Drains Used: No Drains Post-Op Condition: Fair Date of Surgery/Procedure: 01/21/18 Time of Surgery/Procedure: 13:05
[2018-01-21 13:40] LABS: BASO % 0.1 % (0.0-2.0); LYMPH % 6.8 % (20.0-40.0); MEAN CELL VOLUME 92.2 fL (80.0-94.0); MEAN CORPUSCULAR HEMOGLOBIN 31.8 pg (27.0-31.0); MEAN CORPUSCULAR HGB CONC 34.5 g/dL (33.0-37.0); MEAN PLATELET VOLUME 8.2 fL (7.2-11.7); MONO # 0.2 K/uL (0.0-0.8); MONO % 1.6 % (0.0-10.0); NEUT # 13.3 K/uL (1.8-7.0); NEUT % 91.5 % (50.0-75.0); PLATELET COUNT 210 K/uL (130-400); RBC 4.66 Mil/uL (4.40-5.90); RED CELL DISTRIBUTION WIDTH 13.8 % (11.5-14.5)
[2018-01-21 13:54] LABS: HEMOGLOBIN 14.8 g/dL (12.0-18.0); WHITE BLOOD COUNT 14.6 K/uL (4.8-10.8)
[2018-01-21 14:10] LABS: ALB/GLOB RATIO 1.5 (1.0-2.1); ALBUMIN 3.8 g/dL (3.5-5.0); ALT/SGPT 68 U/L (21-72); AST/SGOT 23 U/L (17-59); BLOOD UREA NITROGEN 19 mg/dL (9-20); CALCIUM 8.7 mg/dl (8.6-10.4); GFR AFRICAN-AMERICAN > 60; GFR NON-AFRICAN AMERICAN > 60
[2018-01-21 14:16] LABS: BANDS 5 % (0-2); LYMPHOCYTE 8 % (20-40); MONOCYTE 2 % (0-10); NEUTROPHIL 85 % (50-75); TOTAL CELLS COUNTED 100
[2018-01-21 14:17] LABS: PLATELET ESTIMATE NORMAL (NORMAL)
--- NOTE | 2018-01-21 14:50 | CP.PCM.PN ---
<Lisa Steven - Last Filed: 01/21/18 14:46> Subjective - Date & Time of Evaluation Date of Evaluation: 01/21/18 Time of Evaluation: 15:30 - Subjective Subjective: PGY2- Progress Note for Dr. Burch Patient seen and examined s/p endovascular stent/ grafting of distal aortic aneurysm and bilateral iliac arteries POD#0. Patient denies any chest pain, shortness of breath, pain in groin, nausea, or vomiting. Objective - Vital Signs/Intake and Output Vital Signs (last 24 hours): Temp Pulse Resp BP Pulse Ox 98 F 73 20 105/67 96 01/21/18 08:00 01/21/18 08:00 01/21/18 08:00 01/21/18 09:14 01/21/18 08:00 Intake and Output: 01/21/18 01/21/18 06:59 18:59 Intake Total 600 2650 Output Total 500 Balance 600 2150 - Medications Medications: Current Medications Home Med (Patient's Own Medication) 1 tab PO DAILY@2100 [facility] Last Admin: 01/20/18 21:35 Dose: 1 tab Hydromorphone HCl (Dilaudid) 0.5 mg IVP Q5M PRN PRN Reason: Pain, severe (8-10) Stop: 01/21/18 15:04 Losartan Potassium (Cozaar) 25 mg PO DAILY [facility] Last Admin: 01/21/18 10:39 Dose: Not Given Metoprolol Tartrate (Lopressor) 75 mg PO BID [facility] Last Admin: 01/21/18 09:14 Dose: 75 mg Oxycodone/Acetaminophen (Percocet 5/325 Mg Tab) 1 tab PO Q6H PRN PRN Reason: Pain, moderate (4-7) Stop: 01/24/18 13:07 Rosuvastatin Calcium (Crestor) 40 mg PO HS [facility] Last Admin: 01/20/18 21:35 Dose: 40 mg - Labs Labs: 01/21/18 13:37 01/21/18 13:37 PT 11.4 SECONDS (9.7-12.2) 01/19/18 07:00 INR 1.0 01/19/18 07:00 APTT 38 SECONDS (21-34) H 01/19/18 07:00 - Constitutional Appears: Non-toxic, No Acute Distress - Head Exam Head Exam: ATRAUMATIC, NORMAL INSPECTION, NORMOCEPHALIC - Eye Exam Eye Exam: EOMI, Normal appearance - ENT Exam ENT Exam: Mucous Membranes Moist - Respiratory Exam Respiratory Exam: Clear to Ausculation Bilateral, NORMAL BREATHING PATTERN. absent: Rales, Rhonchi, Wheezes, Respiratory Distress, Stridor - Cardiovascular Exam Cardiovascular Exam: REGULAR RHYTHM, RRR, +S1, +S2 - GI/Abdominal Exam GI & Abdominal Exam: Soft, Normal Bowel Sounds. absent: Tenderness Additional comments: b/l inguinal dressings c/d/i, no hematoma, no pain - Extremities Exam Extremities Exam: Normal Inspection. absent: Pedal Edema, Tenderness - Neurological Exam Neurological Exam: Alert, Awake, Oriented x3 - Psychiatric Exam Psychiatric exam: Normal Affect, Normal Mood - Skin Skin Exam: Intact, Normal Color, Warm Assessment and Plan - Assessment and Plan (Free Text) Assessment: Left Common Iliac Artery Aneurysm s/p endovascular stent/ grafting of distal aortic aneurysm and bilateral iliac arteries on 01/21 CTA: 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 aneurysm measures 5cm in diameter by 6cm in length and terminates 2 cm from the internal iliac artery Surgery, Dr. Ivan consulted - possible endovascular procedure on sunday pending medical optimization echo: left ventricular function is normal, left ventricular ejection fraction within normal range. no regional wall motion abnormalities, mitral regurg is mild. aortic root is mildly enlarged. normal stress test ECHO 01/16/18: left ventricular function normal, left ventricular ejection fraction is within normal range, no regional wall motion abnormalities noted. Mitral regurg is mild. Aortic root is mildly enlarged Discussed with Dr. Burch <Ze Burch - Last Filed: 01/22/18 22:54> Objective - Vital Signs/Intake and Output Vital Signs (last 24 hours): Temp Pulse Resp BP Pulse Ox 98.2 F 77 19 105/62 96 01/22/18 20:00 01/22/18 20:00 01/22/18 20:00 01/22/18 20:00 01/22/18 20:00 Intake and Output: 01/22/18 01/23/18 18:59 06:59 Intake Total 824 120 Output Total 170 400 Balance 654 -280 - Medications Medications: Current Medications Home Med (Patient's Own Medication) 1 tab PO DAILY@2100 [facility] Last Admin: 01/22/18 21:27 Dose: 1 tab Losartan Potassium (Cozaar) 25 mg PO DAILY [facility] Last Admin: 01/22/18 10:23 Dose: Not Given Metoprolol Tartrate (Lopressor) 75 mg PO BID [facility] Last Admin: 01/22/18 17:55 Dose: Not Given Oxycodone/Acetaminophen (Percocet 5/325 Mg Tab) 1 tab PO Q6H PRN PRN Reason: Pain, moderate (4-7) Stop: 01/24/18 13:07 Last Admin: 01/22/18 22:35 Dose: 1 tab Rosuvastatin Calcium (Crestor) 40 mg PO HS [facility] Last Admin: 01/22/18 21:27 Dose: 40 mg - Labs Labs: 01/22/18 06:17 01/22/18 06:16 PT 11.4 SECONDS (9.7-12.2) 01/19/18 07:00 INR 1.0 01/19/18 07:00 APTT 38 SECONDS (21-34) H 01/19/18 07:00 Assessment and Plan - Assessment and Plan (Free Text) Assessment: Patient seen and evaluated personally by il Plan of care d/w the biomedical engineering director and as documented
--- NOTE | 2018-01-21 17:29 | RAD ---
Date of service: 01/21/2018 PROCEDURE: Intraoperative Fluoroscopy. HISTORY: LT. ILIAC ARTERY ANEURYSM FINDINGS: Fluoroscopic assistance was provided for endovascular triple a stenting.. Please refer to the operative report from LISSETH Rai. Total exam DLP: 380.99 (mGy)
[2018-01-21 20:35] LABS: HEMOGLOBIN 14.1 g/dL (12.0-18.0); MEAN CELL VOLUME 91.7 fL (80.0-94.0); MEAN CORPUSCULAR HEMOGLOBIN 30.5 pg (27.0-31.0); MEAN CORPUSCULAR HGB CONC 33.2 g/dL (33.0-37.0); MEAN PLATELET VOLUME 8.2 fL (7.2-11.7); RBC 4.64 Mil/uL (4.40-5.90); RED CELL DISTRIBUTION WIDTH 13.7 % (11.5-14.5); WHITE BLOOD COUNT 16.7 K/uL (4.8-10.8)
[2018-01-21] MEDS: Patient's Own Medication - Tablet/Capusle PO SCH (21:22)
[2018-01-21] MEDS: Oxycodone/Acetaminophen 5/325 mg Tab PO PRN (21:25)
[2018-01-22] MEDS: Oxycodone/Acetaminophen 5/325 mg Tab PO PRN ×2 (05:43→22:35)
[2018-01-22 06:29] LABS: BASO % 0.1 % (0.0-2.0); HEMOGLOBIN 13.1 g/dL (12.0-18.0); LYMPH % 7.3 % (20.0-40.0); MEAN CELL VOLUME 91.3 fL (80.0-94.0); MEAN CORPUSCULAR HEMOGLOBIN 31.7 pg (27.0-31.0); MEAN CORPUSCULAR HGB CONC 34.7 g/dL (33.0-37.0); MEAN PLATELET VOLUME 8.5 fL (7.2-11.7); MONO # 1.2 K/uL (0.0-0.8); NEUT # 11.4 K/uL (1.8-7.0); NEUT % 83.6 % (50.0-75.0); PLATELET COUNT 212 K/uL (130-400); RBC 4.14 Mil/uL (4.40-5.90); WHITE BLOOD COUNT 13.7 K/uL (4.8-10.8)
[2018-01-22 06:43] LABS: ALB/GLOB RATIO 1.5 (1.0-2.1); ALBUMIN 3.5 g/dL (3.5-5.0); ALT/SGPT 60 U/L (21-72); AST/SGOT 12 U/L (17-59); BLOOD UREA NITROGEN 23 mg/dL (9-20); CALCIUM 8.7 mg/dl (8.6-10.4); GFR AFRICAN-AMERICAN > 60; GFR NON-AFRICAN AMERICAN > 60
--- NOTE | 2018-01-22 07:01 | OP ---
PROCEDURE DATE: 01/21/2018 PREOPERATIVE DIAGNOSIS: Left common iliac artery aneurysm. PROCEDURE CARRIED OUT: Endovascular repair of left common iliac artery aneurysm with placement of Endologix AFX stent graft, measuring 22 x 40 and the main body length was 13 x 40. The one iliac extension which was an ovation graft extension was 120 mm along with 28 Flair at the bottom. At the end of the procedure, there was excellent flow without any evidence of endoleak or occlusion of any vessels. In addition, both the inferior mesenteric artery and both internal iliac arteries were widely patent. DESCRIPTION OF PROCEDURE: The patient was given general anesthesia at the patient's request. We planned to do the operation under local anesthesia. Percutaneous access was obtained from the left side. Due to a __curly Q___ fashion of the external iliac artery, it was so much difficult to maintain a wire up into the common iliac artery. We had to go through regular maneuvers including passage from the other side of the catheter, getting it around to eventually get this into position. Perclose devices were predeployed on both sides. After this had been done, we then deployed the graft just to the bifurcation, and pulled down it was finally obtained with a snare. So, basically a graft was deployed on the left side up to the level above the bifurcation, was then brought down on the bifurcation using the standard measures for the AFX device and released. After this had been secured in position, we were happy with it. We then deployed an Ovation graft in the left limb, tapering it down to go right to above the origin of the internal iliac artery on the left side. This had to be adjusted and it was adjusted well. Completion film showed no evidence of any leak. The inferior mesenteric artery was not visualized on the initial films. We then overinflated this area, and we were able to get it to visualize. So, at the end, we had flow of both external iliac arteries and into the inferior mesenteric artery. The Perclose device was then deployed in the groin, and the procedure was terminated. Blood loss for the procedure was 750 mL which is primarily due to the problems we had maintaining our access in the left groin with the contorted anatomy. But at the end of this, we had excellent flow, we had no evidence of dissection, we had no evidence of any endoleak, and the graft was seated at the aortic bifurcation extending into the right side without any leak and extending into the left side which was a target vessel down to the origin of the internal iliac artery with excellent coverage. So, operationcarried out, percutaneous placement of AFX bifurcated graft for treatment of a left common iliac artery aneurysm. Heparin was given and was not reversed at the end. Jarrell Ivan Jr., MD MTDD
[2018-01-22 08:33] LABS: BANDS 2 % (0-2); LYMPHOCYTE 5 % (20-40); MONOCYTE 9 % (0-10); NEUTROPHIL 84 % (50-75); PLATELET ESTIMATE NORMAL (NORMAL); TOTAL CELLS COUNTED 100
--- NOTE | 2018-01-22 12:16 | CP.PCM.CON ---
History of Present Illness - History of Present Illness History of Present Illness: 57 yo M w/ PMHx of HTN, HLD, arthritis, iliac artery aneurysm, B/L hip replacements, and chronic leg pain presented to ED w/ worsening left leg pain. Pt reports MRA in 08/26 shows iliac artery increasing in size. Pt is s/p endovascular stent/ grafting of distal aortic aneurysm and bilateral iliac arteries. Review of Systems - Constitutional Constitutional: absent: Chills, Headache - Cardiovascular Cardiovascular: absent: Chest Pain, Dyspnea, Edema - Respiratory Respiratory: absent: Cough, Dyspnea - Gastrointestinal Gastrointestinal: absent: Abdominal Pain, Nausea - Integumentary Integumentary: Other (pain at incision sites) Past Patient History - Infectious Disease Hx of Infectious Diseases: None - Past Medical History & Family History Past Medical History?: Yes - Past Social History Smoking Status: Former Smoker - CARDIAC Hx Cardiac Disorders: Yes Hx Hypercholesterolemia: Yes Hx Hypertension: Yes - PULMONARY Hx Respiratory Disorders: No - NEUROLOGICAL Hx Neurological Disorder: Yes Other/Comment: RESTLESS LEG SYNDROME,,,,, - HEENT Hx HEENT Problems: No - RENAL Hx Chronic Kidney Disease: No - ENDOCRINE/METABOLIC Hx Endocrine Disorders: No - HEMATOLOGICAL/ONCOLOGICAL Hx Blood Disorders: No - INTEGUMENTARY Hx Dermatological Problems: No - MUSCULOSKELETAL/RHEUMATOLOGICAL Hx Musculoskeletal Disorders: Yes Hx Arthritis: Yes Hx Falls: No - GASTROINTESTINAL Hx Gastrointestinal Disorders: No - GENITOURINARY/GYNECOLOGICAL Hx Genitourinary Disorders: No - PSYCHIATRIC Hx Psychophysiologic Disorder: No Hx Substance Use: No - SURGICAL HISTORY Hx Surgeries: Yes Hx Orthopedic Surgery: Yes (BILAT HIPS 2012 & 2014) - ANESTHESIA Hx Anesthesia: Yes Hx Anesthesia Reactions: No Has any member of the family had a problem w/ anesthesia?: No Meds Home Medications: Home Medication List Medication Instructions Recorded Confirmed Type Ropinirole HCl 0.5 mg PO DAILY #30 tablet 01/16/18 Rx Allergies/Adverse Reactions: Allergies Allergy/AdvReac Type Severity Reaction Status Date / Time iodine Allergy Severe ANAPHYLAXIS Verified 01/15/18 19:27 - Medications Medications: Current Medications Home Med (Patient's Own Medication) 1 tab PO DAILY@2100 [facility] Last Admin: 01/21/18 21:22 Dose: 1 tab Losartan Potassium (Cozaar) 25 mg PO DAILY [facility] Last Admin: 01/22/18 10:23 Dose: Not Given Metoprolol Tartrate (Lopressor) 75 mg PO BID [facility] Last Admin: 01/22/18 10:22 Dose: 75 mg Oxycodone/Acetaminophen (Percocet 5/325 Mg Tab) 1 tab PO Q6H PRN PRN Reason: Pain, moderate (4-7) Stop: 01/24/18 13:07 Last Admin: 01/22/18 05:43 Dose: 1 tab Rosuvastatin Calcium (Crestor) 40 mg PO [facility] Last Admin: 01/21/18 21:22 Dose: 40 mg Physical Exam - Constitutional Appears: Non-toxic, No Acute Distress - Head Exam Head Exam: ATRAUMATIC, NORMAL INSPECTION, NORMOCEPHALIC - Eye Exam Eye Exam: EOMI - ENT Exam ENT Exam: Mucous Membranes Moist - Respiratory Exam Respiratory Exam: Clear to Auscultation Bilateral. absent: Chest Wall Tenderness, Wheezes - Cardiovascular Exam Cardiovascular Exam: REGULAR RHYTHM - GI/Abdominal Exam GI & Abdominal Exam: Normal Bowel Sounds, Soft - Neurological Exam Neurological exam: Alert, Oriented x3 Results - Vital Signs Recent Vital Signs: Last Vital Signs Temp 97.7 F 01/22/18 08:00 Pulse 78 01/22/18 11:00 Resp 12 01/22/18 11:00 BP 109/69 01/22/18 10:40 Pulse Ox 94 L 01/22/18 11:00 - Labs Result Diagrams: 01/22/18 06:17 01/22/18 06:16 Labs: Laboratory Results - last 24 hr 01/21/18 01/21/18 01/21/18 13:37 13:37 20:31 WBC 14.6 H D 16.7 H RBC 4.66 4.64 Hgb 14.8 D 14.1 Hct 43.0 42.6 MCV 92.2 91.7 MCH 31.8 H 30.5 MCHC 34.5 33.2 RDW 13.8 13.7 Plt Count 210 235 MPV 8.2 8.2 Neut % (Auto) 91.5 H Lymph % (Auto) 6.8 L [place] % (Auto) 1.6 Eos % (Auto) 0.0 Baso % (Auto) 0.1 Neut # (Auto) 13.3 H Lymph # (Auto) 1.0 [place] # (Auto) 0.2 Eos # (Auto) 0.0 Baso # (Auto) 0.0 Neutrophils % (Manual) 85 H Band Neutrophils % 5 H Lymphocytes % (Manual) 8 L Monocytes % (Manual) 2 Platelet Estimate Normal RBC Morphology Normal Sodium 141 Potassium 4.0 Chloride 107 Carbon Dioxide 20 L Anion Gap 19 BUN 19 Creatinine 0.8 Est GFR ( Amer) > 60 Est GFR (Non-Af Amer) > 60 Random Glucose 168 H Calcium 8.7 Phosphorus Magnesium Total Bilirubin 1.5 H AST 23 ALT 68 Alkaline Phosphatase 62 Total Protein 6.3 Albumin 3.8 Globulin 2.5 Albumin/Globulin Ratio 1.5 01/22/18 01/22/18 06:16 06:17 WBC 13.7 H RBC 4.14 L Hgb 13.1 Hct 37.8 MCV 91.3 MCH 31.7 H MCHC 34.7 RDW 14.0 Plt Count 212 MPV 8.5 Neut % (Auto) 83.6 H Lymph % (Auto) 7.3 L [place] % (Auto) 9.0 Eos % (Auto) 0.0 Baso % (Auto) 0.1 Neut # (Auto) 11.4 H Lymph # (Auto) 1.0 [place] # (Auto) 1.2 H Eos # (Auto) 0.0 Baso # (Auto) 0.0 Neutrophils % (Manual) 84 H Band Neutrophils % 2 Lymphocytes % (Manual) 5 L Monocytes % (Manual) 9 Platelet Estimate Normal RBC Morphology Normal Sodium 140 Potassium 3.9 Chloride 103 Carbon Dioxide 27 Anion Gap 14 BUN 23 H Creatinine 1.0 Est GFR ( Amer) > 60 Est GFR (Non-Af Amer) > 60 Random Glucose 147 H Calcium 8.7 Phosphorus 3.4 Magnesium 2.2 Total Bilirubin 0.7 AST 12 L D ALT 60 Alkaline Phosphatase 56 Total Protein 6.0 L Albumin 3.5 Globulin 2.4 Albumin/Globulin Ratio 1.5 Assessment & Plan - Assessment and Plan (Free Text) Assessment: 57 yo M admitted to ICU s/p endovascular stent/ grafting of distal aortic aneurysm and bilateral iliac arteries w/ / Moncho. 1. Acute blood loss anemia -reported approximately 750ml of blood lost in OR -Hgb drop from 17.3-->14.8, continue to monitor 2. HTN -cozaar 25mg -metoprolol 75mg BID 3. HLD -crestor 40mg - Date & Time Date: 01/22/18 Time: 12:31
--- NOTE | 2018-01-22 12:37 | CP.CCUPN ---
<Cherelle Watson - Last Filed: 01/22/18 12:32> CCU Subjective - Physician Review Subjective (Free Text): 01/22/18 12:32 57 yo M w/ PMHx of HTN, HLD, arthritis, iliac artery aneurysm, B/L hip replacements, and chronic leg pain presented to ED w/ worsening left leg pain. Pt reports MRA in 08/26 shows iliac artery increasing in size. Pt is s/p endovascular stent/ grafting of distal aortic aneurysm and bilateral iliac arteries. Admitted to ICU for concerning acute blood loss anemia CCU Objective - Vital Signs / Intake & Output Vital Signs (Last 4 hours): Vital Signs Pulse Resp BP Pulse Ox 01/22/18 11:00 78 12 94 L 01/22/18 10:40 92 H 15 109/69 91 L 01/22/18 10:22 129/75 01/22/18 10:00 102 H 19 94 L 01/22/18 09:40 98 H 17 129/76 96 01/22/18 09:00 95 H 15 96 01/22/18 08:40 73 12 103/67 Intake and Output (Last 8hrs): Intake & Output 01/21/18 01/22/18 01/22/18 22:59 06:59 14:59 Intake Total 532 22 322 Output Total 610 350 120 Balance -78 -328 202 Weight 194 lb Intake: Intake, IV Amount 0 22 22 Left Hand 0 0 Right Forearm 0 22 22 Oral 532 300 Output: Urine 610 350 120 Urethral (Tan) 610 350 120 Urine, Voided 0 - Physical Exam Head: Positive for: Atraumatic, Normocephalic Extroacular Muscles: Positive for: EOMI Mouth: Positive for: Moist Mucous Membranes Respiratory/Chest: Positive for: Clear to Auscultation, Good Air Exchange. Negative for: Respiratory Distress Cardiovascular: Positive for: Regular Rate and Rhythm, Normal S1, S2. Negative for: Murmurs Abdomen: Positive for: Normal Bowel Sounds. Negative for: Tenderness, Distention Upper Extremity: Negative for: Cyanosis Lower Extremity: Negative for: Edema Neurological: Positive for: GCS=15 Skin: Positive for: Warm Psychiatric: Positive for: Alert, Oriented x 3 - Medications Active Medications: Active Medications Generic Name Dose Route Start Last Admin Trade Name Freq PRN Reason Stop Dose Admin Home Med 1 tab 01/17/18 21:00 01/21/18 21:22 Patient's Own Medication PO 1 tab DAILY@2100 [facility] Administration Losartan Potassium 25 mg 01/16/18 10:00 01/22/18 10:23 Cozaar PO Not Given DAILY [facility] Metoprolol Tartrate 75 mg 01/20/18 10:15 01/22/18 10:22 Lopressor PO 75 mg BID [facility] Administration Oxycodone/Acetaminophen 1 tab 01/21/18 13:06 01/22/18 05:43 Percocet 5/325 Mg Tab PO 01/24/18 13:07 1 tab Q6H PRN Administration Pain, moderate (4-7) Rosuvastatin Calcium 40 mg 01/16/18 22:00 01/21/18 21:22 Crestor PO 40 mg HS [facility] Administration - Patient Studies Lab Studies: Lab Studies 01/22/18 01/22/18 01/21/18 Range/Units 06:17 06:16 20:31 WBC 13.7 H 16.7 H (4.8-10.8) K/uL RBC 4.14 L 4.64 (4.40-5.90) Mil/uL Hgb 13.1 14.1 (12.0-18.0) g/dL Hct 37.8 42.6 (35.0-51.0) % MCV 91.3 91.7 (80.0-94.0) fL MCH 31.7 H 30.5 (27.0-31.0) pg MCHC 34.7 33.2 (33.0-37.0) g/dL RDW 14.0 13.7 (11.5-14.5) % Plt Count 212 235 (130-400) K/uL MPV 8.5 8.2 (7.2-11.7) fL Neut % (Auto) 83.6 H (50.0-75.0) % Lymph % (Auto) 7.3 L (20.0-40.0) % Faulk % (Auto) 9.0 (0.0-10.0) % Eos % (Auto) 0.0 (0.0-4.0) % Baso % (Auto) 0.1 (0.0-2.0) % Neut # (Auto) 11.4 H (1.8-7.0) K/uL Lymph # (Auto) 1.0 (1.0-4.3) K/uL Faulk # (Auto) 1.2 H (0.0-0.8) K/uL Eos # (Auto) 0.0 (0.0-0.7) K/uL Baso # (Auto) 0.0 (0.0-0.2) K/uL Neutrophils % (Manual) 84 H (50-75) % Band Neutrophils % 2 (0-2) % Lymphocytes % (Manual) 5 L (20-40) % Monocytes % (Manual) 9 (0-10) % Platelet Estimate Normal (NORMAL) RBC Morphology Normal Sodium 140 (132-148) mmol/L Potassium 3.9 (3.6-5.2) mmol/L Chloride 103 (98-107) mmol/L Carbon Dioxide 27 (22-30) mmol/L Anion Gap 14 (10-20) BUN 23 H (9-20) mg/dL Creatinine 1.0 (0.8-1.5) mg/dL Est GFR ( Amer) > 60 Est GFR (Non-Af Amer) > 60 Random Glucose 147 H (75-110) mg/dL Calcium 8.7 (8.6-10.4) mg/dl Phosphorus 3.4 (2.5-4.5) mg/dL Magnesium 2.2 (1.6-2.3) mg/dL Total Bilirubin 0.7 (0.2-1.3) mg/dL AST 12 L D (17-59) U/L ALT 60 (21-72) U/L Alkaline Phosphatase 56 (38-126) U/L Total Protein 6.0 L (6.3-8.3) g/dL Albumin 3.5 (3.5-5.0) g/dL Globulin 2.4 (2.2-3.9) gm/dL Albumin/Globulin Ratio 1.5 (1.0-2.1) 01/21/18 01/21/18 Range/Units 13:37 13:37 WBC 14.6 H D (4.8-10.8) K/uL RBC 4.66 (4.40-5.90) Mil/uL Hgb 14.8 D (12.0-18.0) g/dL Hct 43.0 (35.0-51.0) % MCV 92.2 (80.0-94.0) fL MCH 31.8 H (27.0-31.0) pg MCHC 34.5 (33.0-37.0) g/dL RDW 13.8 (11.5-14.5) % Plt Count 210 (130-400) K/uL MPV 8.2 (7.2-11.7) fL Neut % (Auto) 91.5 H (50.0-75.0) % Lymph % (Auto) 6.8 L (20.0-40.0) % Faulk % (Auto) 1.6 (0.0-10.0) % Eos % (Auto) 0.0 (0.0-4.0) % Baso % (Auto) 0.1 (0.0-2.0) % Neut # (Auto) 13.3 H (1.8-7.0) K/uL Lymph # (Auto) 1.0 (1.0-4.3) K/uL Faulk # (Auto) 0.2 (0.0-0.8) K/uL Eos # (Auto) 0.0 (0.0-0.7) K/uL Baso # (Auto) 0.0 (0.0-0.2) K/uL Neutrophils % (Manual) 85 H (50-75) % Band Neutrophils % 5 H (0-2) % Lymphocytes % (Manual) 8 L (20-40) % Monocytes % (Manual) 2 (0-10) % Platelet Estimate Normal (NORMAL) RBC Morphology Normal Sodium 141 (132-148) mmol/L Potassium 4.0 (3.6-5.2) mmol/L Chloride 107 (98-107) mmol/L Carbon Dioxide 20 L (22-30) mmol/L Anion Gap 19 (10-20) BUN 19 (9-20) mg/dL Creatinine 0.8 (0.8-1.5) mg/dL Est GFR ( Amer) > 60 Est GFR (Non-Af Amer) > 60 Random Glucose 168 H (75-110) mg/dL Calcium 8.7 (8.6-10.4) mg/dl Phosphorus (2.5-4.5) mg/dL Magnesium (1.6-2.3) mg/dL Total Bilirubin 1.5 H (0.2-1.3) mg/dL AST 23 (17-59) U/L ALT 68 (21-72) U/L Alkaline Phosphatase 62 (38-126) U/L Total Protein 6.3 (6.3-8.3) g/dL Albumin 3.8 (3.5-5.0) g/dL Globulin 2.5 (2.2-3.9) gm/dL Albumin/Globulin Ratio 1.5 (1.0-2.1) Laboratory Results - last 24 hr 01/21/18 01/21/18 01/21/18 13:37 13:37 20:31 WBC 14.6 H D 16.7 H RBC 4.66 4.64 Hgb 14.8 D 14.1 Hct 43.0 42.6 MCV 92.2 91.7 MCH 31.8 H 30.5 MCHC 34.5 33.2 RDW 13.8 13.7 Plt Count 210 235 MPV 8.2 8.2 Neut % (Auto) 91.5 H Lymph % (Auto) 6.8 L Faulk % (Auto) 1.6 Eos % (Auto) 0.0 Baso % (Auto) 0.1 Neut # (Auto) 13.3 H Lymph # (Auto) 1.0 Faulk # (Auto) 0.2 Eos # (Auto) 0.0 Baso # (Auto) 0.0 Neutrophils % (Manual) 85 H Band Neutrophils % 5 H Lymphocytes % (Manual) 8 L Monocytes % (Manual) 2 Platelet Estimate Normal RBC Morphology Normal Sodium 141 Potassium 4.0 Chloride 107 Carbon Dioxide 20 L Anion Gap 19 BUN 19 Creatinine 0.8 Est GFR ( Amer) > 60 Est GFR (Non-Af Amer) > 60 Random Glucose 168 H Calcium 8.7 Phosphorus Magnesium Total Bilirubin 1.5 H AST 23 ALT 68 Alkaline Phosphatase 62 Total Protein 6.3 Albumin 3.8 Globulin 2.5 Albumin/Globulin Ratio 1.5 01/22/18 01/22/18 06:16 06:17 WBC 13.7 H RBC 4.14 L Hgb 13.1 Hct 37.8 MCV 91.3 MCH 31.7 H MCHC 34.7 RDW 14.0 Plt Count 212 MPV 8.5 Neut % (Auto) 83.6 H Lymph % (Auto) 7.3 L Faulk % (Auto) 9.0 Eos % (Auto) 0.0 Baso % (Auto) 0.1 Neut # (Auto) 11.4 H Lymph # (Auto) 1.0 Faulk # (Auto) 1.2 H Eos # (Auto) 0.0 Baso # (Auto) 0.0 Neutrophils % (Manual) 84 H Band Neutrophils % 2 Lymphocytes % (Manual) 5 L Monocytes % (Manual) 9 Platelet Estimate Normal RBC Morphology Normal Sodium 140 Potassium 3.9 Chloride 103 Carbon Dioxide 27 Anion Gap 14 BUN 23 H Creatinine 1.0 Est GFR ( Amer) > 60 Est GFR (Non-Af Amer) > 60 Random Glucose 147 H Calcium 8.7 Phosphorus 3.4 Magnesium 2.2 Total Bilirubin 0.7 AST 12 L D ALT 60 Alkaline Phosphatase 56 Total Protein 6.0 L Albumin 3.5 Globulin 2.4 Albumin/Globulin Ratio 1.5 Review of Systems - Constitutional Constitutional: absent: Fever, Chills - Cardiovascular Cardiovascular: absent: Chest Pain, Diaphoresis, Dyspnea, Edema, Palpitations - Respiratory Respiratory: absent: Cough, Dyspnea - Gastrointestinal Gastrointestinal: absent: Abdominal Pain, Diarrhea, Nausea - Integumentary Integumentary: Other (incision site pain) Critical Care Progress Note - Nutrition Nutrition: Nutrition Category Date Time Status Regular Diet [DIET] Diets 01/21/18 Breakfast Active Assessment/Plan - Assessment and Plan (Free Text) Assessment: Assessment: 57 yo M admitted to ICU s/p endovascular stent/ grafting of distal aortic aneurysm and bilateral iliac arteries w/ / Moncho. 1. Acute blood loss anemia -reported approximately 750ml of blood lost in OR -Hgb drop from 17.3-->14.8, continue to monitor -Hgb stable 14.1--->13.1 overnight -no bleeding noted 2. HTN -cozaar 25mg -metoprolol 75mg BID 3. HLD -crestor 40mg Pt stable, no longer in need of critical care monitoring, [facility] - Date & Time Date: 01/22/18 Time: 12:37 <Sixto Laughlin - Last Filed: 01/22/18 17:01> CCU Objective - Vital Signs / Intake & Output Vital Signs (Last 4 hours): Vital Signs Temp Pulse Resp BP Pulse Ox 01/22/18 16:00 98.1 F 79 11 L 93 L 01/22/18 15:41 85 18 114/74 95 01/22/18 15:00 68 15 96 01/22/18 14:40 70 18 103/63 95 01/22/18 14:00 77 18 96 01/22/18 13:40 64 15 100/59 L 93 L Intake and Output (Last 8hrs): Intake & Output 01/22/18 01/22/18 01/22/18 06:59 14:59 22:59 Intake Total 22 562 262 Output Total 350 120 Balance -328 442 262 Weight 194 lb Intake: Intake, IV Amount 22 22 22 Left Hand 0 0 Right Forearm 22 22 22 Oral 540 240 Output: Urine 350 120 Urethral (Tan) 350 120 Urine, Voided 0 - Medications Active Medications: Active Medications Generic Name Dose Route Start Last Admin Trade Name Freq PRN Reason Stop Dose Admin Home Med 1 tab 01/17/18 21:00 01/21/18 21:22 Patient's Own Medication PO 1 tab DAILY@2100 [facility] Administration Losartan Potassium 25 mg 01/16/18 10:00 01/22/18 10:23 Cozaar PO Not Given DAILY [facility] Metoprolol Tartrate 75 mg 01/20/18 10:15 01/22/18 10:22 Lopressor PO 75 mg BID [facility] Administration Oxycodone/Acetaminophen 1 tab 01/21/18 13:06 01/22/18 05:43 Percocet 5/325 Mg Tab PO 01/24/18 13:07 1 tab Q6H PRN Administration Pain, moderate (4-7) Rosuvastatin Calcium 40 mg 01/16/18 22:00 01/21/18 21:22 Crestor PO 40 mg HS [facility] Administration - Patient Studies Lab Studies: Lab Studies 01/22/18 01/22/18 01/21/18 Range/Units 06:17 06:16 20:31 WBC 13.7 H 16.7 H (4.8-10.8) K/uL RBC 4.14 L 4.64 (4.40-5.90) Mil/uL Hgb 13.1 14.1 (12.0-18.0) g/dL Hct 37.8 42.6 (35.0-51.0) % MCV 91.3 91.7 (80.0-94.0) fL MCH 31.7 H 30.5 (27.0-31.0) pg MCHC 34.7 33.2 (33.0-37.0) g/dL RDW 14.0 13.7 (11.5-14.5) % Plt Count 212 235 (130-400) K/uL MPV 8.5 8.2 (7.2-11.7) fL Neut % (Auto) 83.6 H (50.0-75.0) % Lymph % (Auto) 7.3 L (20.0-40.0) % Faulk % (Auto) 9.0 (0.0-10.0) % Eos % (Auto) 0.0 (0.0-4.0) % Baso % (Auto) 0.1 (0.0-2.0) % Neut # (Auto) 11.4 H (1.8-7.0) K/uL Lymph # (Auto) 1.0 (1.0-4.3) K/uL Faulk # (Auto) 1.2 H (0.0-0.8) K/uL Eos # (Auto) 0.0 (0.0-0.7) K/uL Baso # (Auto) 0.0 (0.0-0.2) K/uL Neutrophils % (Manual) 84 H (50-75) % Band Neutrophils % 2 (0-2) % Lymphocytes % (Manual) 5 L (20-40) % Monocytes % (Manual) 9 (0-10) % Platelet Estimate Normal (NORMAL) RBC Morphology Normal Sodium 140 (132-148) mmol/L Potassium 3.9 (3.6-5.2) mmol/L Chloride 103 (98-107) mmol/L Carbon Dioxide 27 (22-30) mmol/L Anion Gap 14 (10-20) BUN 23 H (9-20) mg/dL Creatinine 1.0 (0.8-1.5) mg/dL Est GFR ( Amer) > 60 Est GFR (Non-Af Amer) > 60 Random Glucose 147 H (75-110) mg/dL Calcium 8.7 (8.6-10.4) mg/dl Phosphorus 3.4 (2.5-4.5) mg/dL Magnesium 2.2 (1.6-2.3) mg/dL Total Bilirubin 0.7 (0.2-1.3) mg/dL AST 12 L D (17-59) U/L ALT 60 (21-72) U/L Alkaline Phosphatase 56 (38-126) U/L Total Protein 6.0 L (6.3-8.3) g/dL Albumin 3.5 (3.5-5.0) g/dL Globulin 2.4 (2.2-3.9) gm/dL Albumin/Globulin Ratio 1.5 (1.0-2.1) Laboratory Results - last 24 hr 01/21/18 01/22/18 01/22/18 20:31 06:16 06:17 WBC 16.7 H 13.7 H RBC 4.64 4.14 L Hgb 14.1 13.1 Hct 42.6 37.8 MCV 91.7 91.3 MCH 30.5 31.7 H MCHC 33.2 34.7 RDW 13.7 14.0 Plt Count 235 212 MPV 8.2 8.5 Neut % (Auto) 83.6 H Lymph % (Auto) 7.3 L Faulk % (Auto) 9.0 Eos % (Auto) 0.0 Baso % (Auto) 0.1 Neut # (Auto) 11.4 H Lymph # (Auto) 1.0 Faulk # (Auto) 1.2 H Eos # (Auto) 0.0 Baso # (Auto) 0.0 Neutrophils % (Manual) 84 H Band Neutrophils % 2 Lymphocytes % (Manual) 5 L Monocytes % (Manual) 9 Platelet Estimate Normal RBC Morphology Normal Sodium 140 Potassium 3.9 Chloride 103 Carbon Dioxide 27 Anion Gap 14 BUN 23 H Creatinine 1.0 Est GFR ( Amer) > 60 Est GFR (Non-Af Amer) > 60 Random Glucose 147 H Calcium 8.7 Phosphorus 3.4 Magnesium 2.2 Total Bilirubin 0.7 AST 12 L D ALT 60 Alkaline Phosphatase 56 Total Protein 6.0 L Albumin 3.5 Globulin 2.4 Albumin/Globulin Ratio 1.5 Critical Care Progress Note - Nutrition Nutrition: Nutrition Category Date Time Status Regular Diet [DIET] Diets 01/21/18 Breakfast Active Attending/Attestation - Attestation I have personally seen and examined this patient.: Yes I have fully participated in the care of the patient.: Yes I have reviewed all pertinent clinical information: Yes Notes (Text): 01/22/18 17:00 Pt is s/p endovascular stent/ grafting of distal aortic aneurysm and bilateral iliac arteries. transfer to floor
--- NOTE | 2018-01-22 19:00 | CP.PCM.PN ---
Subjective - Date & Time of Evaluation Date of Evaluation: 01/22/18 Time of Evaluation: 06:00 - Subjective Subjective: Vascular Surgery Progress Note for Dr. Ivan This 57M was seen and evaluated this Am at bedside no acute events overnight. Patient denies any lower extremity pain, numbeness or motor deficits. He deneis any fevers chills chest pian nausea vomiting or diarrhea. Objective - Vital Signs/Intake and Output Vital Signs (last 24 hours): Temp Pulse Resp BP Pulse Ox 98.1 F 76 13 100/51 L 97 01/22/18 16:00 01/22/18 18:00 01/22/18 18:00 01/22/18 17:55 01/22/18 18:00 Intake and Output: 01/22/18 01/22/18 06:59 18:59 Intake Total 262 824 Output Total 710 170 Balance -448 654 - Medications Medications: Current Medications Home Med (Patient's Own Medication) 1 tab PO DAILY@2100 [facility] Last Admin: 01/21/18 21:22 Dose: 1 tab Losartan Potassium (Cozaar) 25 mg PO DAILY [facility] Last Admin: 01/22/18 10:23 Dose: Not Given Metoprolol Tartrate (Lopressor) 75 mg PO BID [facility] Last Admin: 01/22/18 17:55 Dose: Not Given Oxycodone/Acetaminophen (Percocet 5/325 Mg Tab) 1 tab PO Q6H PRN PRN Reason: Pain, moderate (4-7) Stop: 01/24/18 13:07 Last Admin: 01/22/18 05:43 Dose: 1 tab Rosuvastatin Calcium (Crestor) 40 mg PO [facility] Last Admin: 01/21/18 21:22 Dose: 40 mg - Labs Labs: 01/22/18 06:17 01/22/18 06:16 PT 11.4 SECONDS (9.7-12.2) 01/19/18 07:00 INR 1.0 01/19/18 07:00 APTT 38 SECONDS (21-34) H 01/19/18 07:00 - Constitutional Appears: Non-toxic, No Acute Distress - Head Exam Head Exam: ATRAUMATIC, NORMOCEPHALIC - Eye Exam Eye Exam: EOMI, Normal appearance - ENT Exam ENT Exam: Mucous Membranes Moist - Respiratory Exam Respiratory Exam: NORMAL BREATHING PATTERN - Cardiovascular Exam Cardiovascular Exam: +S1, +S2 - GI/Abdominal Exam GI & Abdominal Exam: Soft. absent: Distended, Firm, Guarding, Rigid, Tenderness - Extremities Exam Additional comments: Groin puncture sites with dressings that are clean dry and intact without any evidence of hematoma Assessment and Plan - Assessment and Plan (Free Text) Assessment: 47M POD#1 s/p endovascualr stending of aorta and bilateral common illiacs and doing well Pt cleared for D/C home from surgical perspective D/W Dr. Moncho Moulton PGY3
--- NOTE | 2018-01-22 21:17 | CP.PCM.PN ---
Subjective - Date & Time of Evaluation Date of Evaluation: 01/19/18 Time of Evaluation: 21:17 - Subjective Subjective: Patient complaining of a headache on and off. Denies any chest pain or shortness of breath. Leg pain noted. Clinical examination is unremarkable Awaiting further surgical intervention on Sunday. Objective - Vital Signs/Intake and Output Vital Signs (last 24 hours): Temp Pulse Resp BP Pulse Ox 98.2 F 77 19 105/62 96 01/22/18 20:00 01/22/18 20:00 01/22/18 20:00 01/22/18 20:00 01/22/18 20:00 Intake and Output: 01/22/18 01/23/18 18:59 06:59 Intake Total 824 0 Output Total 170 225 Balance 654 -225 - Medications Medications: Current Medications Home Med (Patient's Own Medication) 1 tab PO DAILY@2100 [facility] Last Admin: 01/21/18 21:22 Dose: 1 tab Losartan Potassium (Cozaar) 25 mg PO DAILY [facility] Last Admin: 01/22/18 10:23 Dose: Not Given Metoprolol Tartrate (Lopressor) 75 mg PO BID [facility] Last Admin: 01/22/18 17:55 Dose: Not Given Oxycodone/Acetaminophen (Percocet 5/325 Mg Tab) 1 tab PO Q6H PRN PRN Reason: Pain, moderate (4-7) Stop: 01/24/18 13:07 Last Admin: 01/22/18 05:43 Dose: 1 tab Rosuvastatin Calcium (Crestor) 40 mg PO HS [facility] Last Admin: 01/21/18 21:22 Dose: 40 mg - Labs Labs: 01/22/18 06:17 01/22/18 06:16 PT 11.4 SECONDS (9.7-12.2) 01/19/18 07:00 INR 1.0 01/19/18 07:00 APTT 38 SECONDS (21-34) H 01/19/18 07:00
--- NOTE | 2018-01-22 21:17 | CP.PCM.PN ---
Subjective - Date & Time of Evaluation Date of Evaluation: 01/18/18 Time of Evaluation: 21:17 - Subjective Subjective: Patient is clinically stable. He denies any chest pain. Somewhat bored. Vital signs stable. Continue the current treatment Objective - Vital Signs/Intake and Output Vital Signs (last 24 hours): Temp Pulse Resp BP Pulse Ox 98.2 F 77 19 105/62 96 01/22/18 20:00 01/22/18 20:00 01/22/18 20:00 01/22/18 20:00 01/22/18 20:00 Intake and Output: 01/22/18 01/23/18 18:59 06:59 Intake Total 824 0 Output Total 170 225 Balance 654 -225 - Medications Medications: Current Medications Home Med (Patient's Own Medication) 1 tab PO DAILY@2100 [facility] Last Admin: 01/21/18 21:22 Dose: 1 tab Losartan Potassium (Cozaar) 25 mg PO DAILY [facility] Last Admin: 01/22/18 10:23 Dose: Not Given Metoprolol Tartrate (Lopressor) 75 mg PO BID [facility] Last Admin: 01/22/18 17:55 Dose: Not Given Oxycodone/Acetaminophen (Percocet 5/325 Mg Tab) 1 tab PO Q6H PRN PRN Reason: Pain, moderate (4-7) Stop: 01/24/18 13:07 Last Admin: 01/22/18 05:43 Dose: 1 tab Rosuvastatin Calcium (Crestor) 40 mg PO [facility] Last Admin: 01/21/18 21:22 Dose: 40 mg - Labs Labs: 01/22/18 06:17 01/22/18 06:16 PT 11.4 SECONDS (9.7-12.2) 01/19/18 07:00 INR 1.0 01/19/18 07:00 APTT 38 SECONDS (21-34) H 01/19/18 07:00
[2018-01-22] MEDS: Patient's Own Medication - Tablet/Capusle PO SCH (21:27)
--- NOTE | 2018-01-22 22:56 | CP.PCM.PN ---
Subjective - Date & Time of Evaluation Date of Evaluation: 01/22/18 Time of Evaluation: 16:20 - Subjective Subjective: Patient seen and evaluated Denies chest pain and dyspnea Possible d/c in am Out patient f/u with Dr. Ivan and Dr. Paulino Alves Patient seen and examined s/p endovascular stent/ grafting of distal aortic aneurysm and bilateral iliac arteries POD#0. Patient denies any chest pain, shortness of breath, pain in groin, nausea, or vomiting. Physical Examination - Constitutional Appears: Non-toxic, No Acute Distress - Head Exam Head Exam: ATRAUMATIC, NORMAL INSPECTION, NORMOCEPHALIC - Eye Exam Eye Exam: EOMI, Normal appearance - ENT Exam ENT Exam: Mucous Membranes Moist - Respiratory Exam Respiratory Exam: Clear to Ausculation Bilateral, NORMAL BREATHING PATTERN. absent: Rales, Rhonchi, Wheezes, Respiratory Distress, Stridor - Cardiovascular Exam Cardiovascular Exam: REGULAR RHYTHM, RRR, +S1, +S2 - GI/Abdominal Exam GI & Abdominal Exam: Soft, Normal Bowel Sounds. absent: Tenderness Additional comments: b/l inguinal dressings c/d/i, no hematoma, no pain - Extremities Exam Extremities Exam: Normal Inspection. absent: Pedal Edema, Tenderness - Neurological Exam Neurological Exam: Alert, Awake, Oriented x3 - Psychiatric Exam Psychiatric exam: Normal Affect, Normal Mood - Skin Skin Exam: Intact, Normal Color, Warm Objective - Vital Signs/Intake and Output Vital Signs (last 24 hours): Temp Pulse Resp BP Pulse Ox 98.2 F 77 19 105/62 96 01/22/18 20:00 01/22/18 20:00 01/22/18 20:00 01/22/18 20:00 01/22/18 20:00 Intake and Output: 01/22/18 01/23/18 18:59 06:59 Intake Total 824 120 Output Total 170 400 Balance 654 -280 - Medications Medications: Current Medications Home Med (Patient's Own Medication) 1 tab PO DAILY@2100 [facility] Last Admin: 01/22/18 21:27 Dose: 1 tab Losartan Potassium (Cozaar) 25 mg PO DAILY [facility] Last Admin: 01/22/18 10:23 Dose: Not Given Metoprolol Tartrate (Lopressor) 75 mg PO BID [facility] Last Admin: 01/22/18 17:55 Dose: Not Given Oxycodone/Acetaminophen (Percocet 5/325 Mg Tab) 1 tab PO Q6H PRN PRN Reason: Pain, moderate (4-7) Stop: 01/24/18 13:07 Last Admin: 01/22/18 22:35 Dose: 1 tab Rosuvastatin Calcium (Crestor) 40 mg PO HS [facility] Last Admin: 01/22/18 21:27 Dose: 40 mg - Labs Labs: 01/22/18 06:17 01/22/18 06:16 PT 11.4 SECONDS (9.7-12.2) 01/19/18 07:00 INR 1.0 01/19/18 07:00 APTT 38 SECONDS (21-34) H 01/19/18 07:00 Assessment and Plan - Assessment and Plan (Free Text) Assessment: Left Common Iliac Artery Aneurysm s/p endovascular stent/ grafting of distal aortic aneurysm and bilateral iliac arteries on 01/21 CTA: 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 aneurysm measures 5cm in diameter by 6cm in length and terminates 2 cm from the internal iliac artery Surgery, Dr. Ivan consulted - possible endovascular procedure on sunday pending medical optimization echo: left ventricular function is normal, left ventricular ejection fraction within normal range. no regional wall motion abnormalities, mitral regurg is mild. aortic root is mildly enlarged. normal stress test ECHO 01/16/18: left ventricular function normal, left ventricular ejection fraction is within normal range, no regional wall motion abnormalities noted. Mitral regurg is mild. Aortic root is mildly enlarged
[2018-01-23] MEDS: Oxycodone/Acetaminophen 5/325 mg Tab PO PRN ×2 (08:27→15:06)
[2018-01-23 20:11] LABS: BASO # 0.1 K/uL (0.0-0.2); BASO % 0.5 % (0.0-2.0); EOS # 0.3 K/uL (0.0-0.7); EOS % 2.3 % (0.0-4.0); HEMOGLOBIN 12.7 g/dL (12.0-18.0); LYMPH # 2.3 K/uL (1.0-4.3); LYMPH % 21.1 % (20.0-40.0); MEAN CELL VOLUME 92.6 fL (80.0-94.0); MEAN CORPUSCULAR HEMOGLOBIN 31.4 pg (27.0-31.0); MEAN CORPUSCULAR HGB CONC 33.9 g/dL (33.0-37.0); MEAN PLATELET VOLUME 8.6 fL (7.2-11.7); MONO # 1.3 K/uL (0.0-0.8); MONO % 12.2 % (0.0-10.0); NEUT % 63.9 % (50.0-75.0); RBC 4.04 Mil/uL (4.40-5.90); RED CELL DISTRIBUTION WIDTH 13.5 % (11.5-14.5)
[2018-01-23 20:37] LABS: ALB/GLOB RATIO 1.6 (1.0-2.1); ALT/SGPT 70 U/L (21-72); AST/SGOT 21 U/L (17-59); BLOOD UREA NITROGEN 14 mg/dL (9-20); GFR AFRICAN-AMERICAN > 60; GFR NON-AFRICAN AMERICAN > 60
[2018-01-23] MEDS: Patient's Own Medication - Tablet/Capusle PO SCH ×2 (21:25→21:31)
[2018-01-24] MEDS: Oxycodone/Acetaminophen 5/325 mg Tab PO PRN (01:36)
[2018-01-24] MEDS ORDERED: Potassium Chloride 20 mEq ER Tab PO ONE (08:15)
--- NOTE | 2018-01-24 08:38 | CARD ---
APPROVED REPORT Date of service: 01/17/2018 Protocol: LEXISCAN Test Type: LEXISCAN STRESS Test Indications: PRE OP Medications: LIST Target HR: 162 bpm Resting ECG: NSR Resting Heart Rate: 66 bpm Resting Blood Pressure: 134/80mmHg submaximum (85%): 138 bpm TEST SUMMARY PREINFSNHYPERV.10:[id number]/80.0. INFUSIONDOSE 100:300.00.01.067/.0. [id number]/80.0. PROCEDURE Pharmacologic stress testing was performed using 0.4mg per 5ml of regadenoson given intravenously over 7-10 seconds. POST EXERCISE Reason for Termination: Protocol Completed Target HR: No Max HR: 67 bpm 51% of Maximum Predicted HR: 162 bpm Exercise duration: 00:30 min:sec, 0 Stage Exercise capacity: 1.0METs Max Blood Pressure: 134/80mmHg Blood Pressure response to exercise: normal resting BP - appropriate response Heart Rate response to exercise: appropriate Chest Pain: No, none Angina index: 0 Arrhythmia: No, none ST Change: No, none Deviation: 0 mm INTERPRETATION Stress EKG Conclusion: NEGATIVE LEXISCAN STRESS TEST NORMAL BP RESPONSE TO LEXISCAN NUCLEAR TUDIES TO BE READ SEPARATELY EXAM: Myocardial Perfusion STRESS/REST Imaging Protocol The imaging protocol used to acquire images was Stress Tc-99m/rest Tc-99m 1 day Stress Spect myocardial perfusion imaging was performed in supine position 45 minutes following the injection of 12.5 mCi of Tc-99 Myoview. Gated Rest Spect was performed 55 minutes after intravenous 32.5 mci Tc-99 Myoview injection. The images were gated to evaluate regional wall motion and calculate ventricular ejection fraction.Images were reconstructed using backfilter projection method in short horizontal and verticle long axis. Spect slices were generated. RESTING DATA HHW150.00kpXG9.10L/min1/3 Pk. Filling Rate1.27EDV/sec LV Time to Pk. Filling Exgj897.23msec ESV38.00mlMyocardial Kosz385.00gLV Time to Pk. Ejection Ixbd892.97msec Pk. Fill Rate2.73EDV/secAv. Heart Rate58.00bpm EF65.00%Pk. Emptying Rate2.66ESV/sec STRESS DATA ELE128.67wkJN9.40L/min ESV24.00mlMyocardial Hwqj179.00g Pk. Fill Rate3.62EDV/sec EF77.00%Pk. Emptying Rate3.65ESV/sec 1/3 Pk. Filling Rate2.13EDV/secRegional WT score at stress:1.00 LV Time to Pk. Filling Rate:142.20msecRegional WM score at stress:0.00 LV Time to Pk. Ejection Rate:293.91msecSummed WT score at stress:15.00 Av. Heart Rate67.00bpmSummed WM score at stress:0.00 LV Perf. Quant 17 Seg. SSS2.00 17 Seg. SRS2.00 17 Seg. SDS1.00 Stress Defect Extent (% LAD)0.00Rest Defect Extent (% LAD)0.00Rev. Defect Extent (% LAD)0.00 Stress Defect Extent (% LCX)0.00Rest Defect Extent (% LCX)0.00Rev. Defect Extent (% LCX)0.00 Stress Defect Extent (% RCA)12.20Rest Defect Extent (% RCA)0.00Rev. Defect Extent (% RCA)7.80 Stress Defect Extent (% PATEL)2.40Rest Defect Extent (% PATEL)0.00Rev. Defect Extent (% PATEL)1.50 Other Information Quality:Good Left Ventricle LV Function:Left ventricle systolic function is normal. The Ejection Fraction is >70%. Conclusion 1. Small fixed inferior defect. No stress induced ischemia. Normal EF.
--- NOTE | 2018-01-24 09:20 | RAD ---
Date of service: 01/23/2018 HISTORY: ilieus COMPARISON: Fluoroscopy 01/21/2018 FINDINGS: BOWEL: Moderate stool retention. No obstruction. No free air. BONES: Degenerative changes. Bilateral total hip replacements. OTHER FINDINGS: Endovascular stenting at abdominal aortic bifurcation and left common iliac artery IMPRESSION: Postop changes. No bowel dilatation to suggest ileus. Moderate stool retention. No bowel obstruction suggested
[2018-01-24] MEDS: Bisacodyl 5mg EC Tab PO SCH (14:04)
--- NOTE | 2018-01-24 19:25 | CP.PCM.PN ---
Subjective - Date & Time of Evaluation Date of Evaluation: 01/24/18 Time of Evaluation: 19:25 - Subjective Subjective: Patient is still having episodes of not feeling well, he is having some in the abdomen, concerned about constipation. But he is able to ambulate. Abdomen is soft. Vital signs stable. He is able to eat better. No leg swelling Clinical examination otherwise normal. On examination his abdomen is nontender. Labs reviewed Low potassium noted. We will continue to monitor today. Possible discharge plan tomorrow. Objective - Vital Signs/Intake and Output Vital Signs (last 24 hours): Temp Pulse Resp BP Pulse Ox 98.2 F 90 18 127/79 98 01/24/18 16:00 01/24/18 16:00 01/24/18 16:00 01/24/18 16:00 01/24/18 16:00 Intake and Output: 01/24/18 01/25/18 18:59 06:59 Intake Total 300 Balance 300 - Medications Medications: Current Medications Bisacodyl (Dulcolax) 5 mg PO DAILY [facility] Last Admin: 01/24/18 14:04 Dose: 5 mg Home Med (Patient's Own Medication) 1 tab PO DAILY@2100 [facility] Last Admin: 01/23/18 21:31 Dose: 1 tab Losartan Potassium (Cozaar) 25 mg PO DAILY [facility] Last Admin: 01/22/18 10:23 Dose: Not Given Metoprolol Tartrate (Lopressor) 75 mg PO BID [facility] Last Admin: 01/22/18 17:55 Dose: Not Given Rosuvastatin Calcium (Crestor) 40 mg PO HS [facility] Last Admin: 01/23/18 21:29 Dose: 40 mg - Labs Labs: 01/23/18 19:18 01/23/18 19:18 PT 11.4 SECONDS (9.7-12.2) 01/19/18 07:00 INR 1.0 01/19/18 07:00 APTT 38 SECONDS (21-34) H 01/19/18 07:00
[2018-01-24] MEDS: Patient's Own Medication - Tablet/Capusle PO SCH (22:29)
[2018-01-24] MEDS ORDERED: Oxycodone/Acetaminophen 5/325 mg Tab PO STA (22:46)
[2018-01-25] MEDS: Bisacodyl 5mg EC Tab PO SCH (10:22)
--- NOTE | 2018-01-25 11:33 | CP.PCM.PN ---
<Lisa Steven - Last Filed: 01/25/18 13:42> Subjective - Date & Time of Evaluation Date of Evaluation: 01/25/18 Time of Evaluation: 11:00 - Subjective Subjective: PGY2- Progress Note for Dr. Burch Patient seen and examined at bedside and in no acute distress. Patient says he is feeling much better. Patient denies any chest pain, shortness of breath, abdominal pain, nausea, vomiting, constipation, or diarrhea. Patient is not having any pain in his groin. Patient is eager to get home. Objective - Vital Signs/Intake and Output Vital Signs (last 24 hours): Temp Pulse Resp BP Pulse Ox 99.3 F 79 18 117/68 97 01/25/18 00:00 01/25/18 04:00 01/24/18 16:00 01/25/18 00:00 01/24/18 20:00 Intake and Output: 01/25/18 01/25/18 06:59 18:59 Intake Total 280 Output Total 450 Balance -170 - Medications Medications: Current Medications Acetaminophen (Tylenol 325mg Tab) 650 mg PO Q6 PRN PRN Reason: Headache Bisacodyl (Dulcolax) 5 mg PO DAILY [facility] Last Admin: 01/25/18 10:22 Dose: Not Given Home Med (Patient's Own Medication) 1 tab PO DAILY@2100 [facility] Last Admin: 01/24/18 22:29 Dose: 1 tab Losartan Potassium (Cozaar) 25 mg PO DAILY [facility] Last Admin: 01/22/18 10:23 Dose: Not Given Metoprolol Tartrate (Lopressor) 75 mg PO BID [facility] Last Admin: 01/22/18 17:55 Dose: Not Given Rosuvastatin Calcium (Crestor) 40 mg PO HS [facility] Last Admin: 01/24/18 22:29 Dose: 40 mg - Labs Labs: 01/23/18 19:18 01/23/18 19:18 PT 11.4 SECONDS (9.7-12.2) 01/19/18 07:00 INR 1.0 01/19/18 07:00 APTT 38 SECONDS (21-34) H 01/19/18 07:00 - Additional Findings Additional findings: - Constitutional Appears: Non-toxic, No Acute Distress - Head Exam Head Exam: ATRAUMATIC, NORMOCEPHALIC - Eye Exam Eye Exam: EOMI, Normal appearance - ENT Exam ENT Exam: Mucous Membranes Moist - Respiratory Exam Respiratory Exam: NORMAL BREATHING PATTERN - Cardiovascular Exam Cardiovascular Exam: +S1, +S2 - GI/Abdominal Exam GI & Abdominal Exam: Soft. 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 aneurysm measures 5cm in diameter by 6cm in length and terminates 2 cm from the internal iliac artery ECHO 01/16/18: left ventricular function normal, left ventricular ejection fraction is within normal range, no regional wall motion abnormalities noted. Mitral regurg is mild. Aortic root is mildly enlarged Outpatient f/u with Dr. Ivan and Dr. Paulino Alves Discussed with Dr. Burch <Ze Burch - Last Filed: 01/25/18 21:28> Objective - Vital Signs/Intake and Output Vital Signs (last 24 hours): Temp Pulse Resp BP Pulse Ox 98.5 F 81 16 127/83 99 01/25/18 08:00 01/25/18 08:00 01/25/18 08:00 01/25/18 08:00 01/25/18 08:00 Intake and Output: 01/25/18 01/26/18 18:59 06:59 Intake Total 250 Output Total 400 Balance -150 - Labs Labs: 01/23/18 19:18 01/23/18 19:18 PT 11.4 SECONDS (9.7-12.2) 01/19/18 07:00 INR 1.0 01/19/18 07:00 APTT 38 SECONDS (21-34) H 01/19/18 07:00 Assessment and Plan - Assessment and Plan (Free Text) Assessment: Patient seen and evaluated personally by tx Plan of care d/w the medical technologist microbiology and as documented
[2018-01-25 16:43] VITALS: BP 127/83; PULSE 81; RESP 16; TEMP 98.5; O2SAT 99
--- NOTE | 2018-01-26 15:38 | CP.PCM.PN ---
Subjective - Date & Time of Evaluation Date of Evaluation: 01/22/18 Time of Evaluation: 15:39 - Subjective Subjective: Patient postoperative day. Day 2 Feeling slightly better. Pain in the legs noted. Urine output despite a Tan catheter noted On examination: Vital signs stable. Blood pressure slightly on the low side. Chest bilateral good air entry Nontender abdomen. No pedal edema Assessment and recommendation: 57-year-old male with a history of diabetes hypertension peripheral vascular disease. Left iliac artery aneurysm P Status post iliac artery stenting. Stable now. We will continue the current treatment. Postoperative pain management will follow the Objective - Vital Signs/Intake and Output Vital Signs (last 24 hours): Temp Pulse Resp BP Pulse Ox 98.5 F 81 16 127/83 99 01/25/18 08:00 01/25/18 08:00 01/25/18 08:00 01/25/18 08:00 01/25/18 08:00 - Labs Labs: 01/23/18 19:18 01/23/18 19:18 PT 11.4 SECONDS (9.7-12.2) 01/19/18 07:00 INR 1.0 01/19/18 07:00 APTT 38 SECONDS (21-34) H 01/19/18 07:00
--- NOTE | 2018-01-26 15:39 | CP.PCM.PN ---
Subjective - Date & Time of Evaluation Date of Evaluation: 01/23/18 Time of Evaluation: 15:40 - Subjective Subjective: Patient postoperative day. Patient is having difficult time in going to the bathroom. Complaining of abdominal discomfort. No chest pain. Not feeling well, no BM today On examination: Vital signs stable. Blood pressure slightly on the low side. Chest bilateral good air entry Nontender abdomen. No pedal edema Assessment and recommendation: 57-year-old male with a history of diabetes hypertension peripheral vascular disease. Left iliac artery aneurysm P Status post iliac artery stenting. Stable now. Will repeat the abdominal x-ray. Dulcolax suppository. Pain management. We will follow the patient Objective - Vital Signs/Intake and Output Vital Signs (last 24 hours): Temp Pulse Resp BP Pulse Ox 98.5 F 81 16 127/83 99 01/25/18 08:00 01/25/18 08:00 01/25/18 08:00 01/25/18 08:00 01/25/18 08:00 - Labs Labs: 01/23/18 19:18 01/23/18 19:18 PT 11.4 SECONDS (9.7-12.2) 01/19/18 07:00 INR 1.0 01/19/18 07:00 APTT 38 SECONDS (21-34) H 01/19/18 07:00
--- NOTE | 2018-01-26 15:39 | CP.PCM.DIS ---
Provider - Provider Date of Admission: 01/15/18 21:49 Attending physician: Raman Bridges MD Primary care physician: Emmy Alves MD Time Spent in preparation of Discharge (in minutes): 45 Hospital Course - Lab Results Lab Results: Micro Results 01/25/18 14:47 Naris MRSA Culture - Final MRSA NOT DETECTED 01/22/18 06:19 Nose MRSA Culture (Admit) - Final MRSA NOT DETECTED Most Recent Lab Values WBC 11.0 K/uL (4.8-10.8) H 01/23/18 19:18 RBC 4.04 Mil/uL (4.40-5.90) L 01/23/18 19:18 Hgb 12.7 g/dL (12.0-18.0) 01/23/18 19:18 Hct 37.4 % (35.0-51.0) 01/23/18 19:18 MCV 92.6 fL (80.0-94.0) 01/23/18 19:18 MCH 31.4 pg (27.0-31.0) H 01/23/18 19:18 MCHC 33.9 g/dL (33.0-37.0) 01/23/18 19:18 RDW 13.5 % (11.5-14.5) 01/23/18 19:18 Plt Count 200 K/uL (130-400) 01/23/18 19:18 MPV 8.6 fL (7.2-11.7) 01/23/18 19:18 Neut % (Auto) 63.9 % (50.0-75.0) 01/23/18 19:18 Lymph % (Auto) 21.1 % (20.0-40.0) 01/23/18 19:18 [place] % (Auto) 12.2 % (0.0-10.0) H 01/23/18 19:18 Eos % (Auto) 2.3 % (0.0-4.0) 01/23/18 19:18 Baso % (Auto) 0.5 % (0.0-2.0) 01/23/18 19:18 Neut # (Auto) 7.0 K/uL (1.8-7.0) 01/23/18 19:18 Lymph # (Auto) 2.3 K/uL (1.0-4.3) 01/23/18 19:18 [place] # (Auto) 1.3 K/uL (0.0-0.8) H 01/23/18 19:18 Eos # (Auto) 0.3 K/uL (0.0-0.7) 01/23/18 19:18 Baso # (Auto) 0.1 K/uL (0.0-0.2) 01/23/18 19:18 Neutrophils % (Manual) 84 % (50-75) H 01/22/18 06:17 Band Neutrophils % 2 % (0-2) 01/22/18 06:17 Lymphocytes % (Manual) 5 % (20-40) L 01/22/18 06:17 Monocytes % (Manual) 9 % (0-10) 01/22/18 06:17 Platelet Estimate Normal (NORMAL) 01/22/18 06:17 RBC Morphology Normal 01/22/18 06:17 PT 11.4 SECONDS (9.7-12.2) 01/19/18 07:00 INR 1.0 01/19/18 07:00 APTT 38 SECONDS (21-34) H 01/19/18 07:00 Sodium 142 mmol/L (132-148) 01/23/18 19:18 Potassium 3.5 mmol/L (3.6-5.2) L 01/23/18 19:18 Chloride 100 mmol/L (98-107) 01/23/18 19:18 Carbon Dioxide 29 mmol/L (22-30) 01/23/18 19:18 Anion Gap 16 (10-20) 01/23/18 19:18 BUN 14 mg/dL (9-20) 01/23/18 19:18 Creatinine 0.9 mg/dL (0.8-1.5) 01/23/18 19:18 Est GFR ( Amer) > 60 01/23/18 19:18 Est GFR (Non-Af Amer) > 60 01/23/18 19:18 Random Glucose 121 mg/dL (75-110) H 01/23/18 19:18 Lactic Acid 1.5 mmol/L (0.7-2.1) 01/23/18 19:18 Calcium 9.0 mg/dl (8.6-10.4) 01/23/18 19:18 Phosphorus 3.4 mg/dL (2.5-4.5) 01/22/18 06:16 Magnesium 2.2 mg/dL (1.6-2.3) 01/22/18 06:16 Total Bilirubin 0.8 mg/dL (0.2-1.3) 01/23/18 19:18 AST 21 U/L (17-59) 01/23/18 19:18 ALT 70 U/L (21-72) 01/23/18 19:18 Alkaline Phosphatase 68 U/L (38-126) 01/23/18 19:18 Total Protein 6.6 g/dL (6.3-8.3) 01/23/18 19:18 Albumin 4.0 g/dL (3.5-5.0) 01/23/18 19:18 Globulin 2.5 gm/dL (2.2-3.9) 01/23/18 19:18 Albumin/Globulin Ratio 1.6 (1.0-2.1) 01/23/18 19:18 Urine Color Yellow (YELLOW) 01/15/18 20:45 Urine Clarity Clear (Clear) 01/15/18 20:45 Urine pH 6.0 (5.0-8.0) 01/15/18 20:45 Ur Specific [place] 1.021 (1.003-1.030) 01/15/18 20:45 Urine Protein Negative mg/dL (NEGATIVE) 01/15/18 20:45 Urine Glucose (UA) Normal mg/dL (Normal) 01/15/18 20:45 Urine Ketones Negative mg/dL (NEGATIVE) 01/15/18 20:45 Urine Blood 2+ (NEGATIVE) H 01/15/18 20:45 Urine Nitrate Negative (NEGATIVE) 01/15/18 20:45 Urine Bilirubin Negative (NEGATIVE) 01/15/18 20:45 Urine Urobilinogen Normal mg/dL (0.2-1.0) 01/15/18 20:45 Ur Leukocyte Esterase Neg [place]/uL (Negative) 01/15/18 20:45 Urine WBC (Auto) 1 /hpf (0-5) 01/15/18 20:45 Urine RBC (Auto) 11 /hpf (0-3) H 01/15/18 20:45 Ur Squamous Epith Cells < 1 /hpf (0-5) 01/15/18 20:45 Blood Type O POSITIVE 01/21/18 09:28 Antibody Screen Negative 01/21/18 09:28 - Hospital Course Hospital Course: Chief complaint: Left leg pain HPI: 57-year-old male with a history of hypertension, hypercholesteremia, arthritis, bilateral hip replacement, leg pain, and the left leg cramps more than the right leg, came to the opposite the worsening pain in the left leg, and lower abdomen area. Patient has no chest pain. He denies any nausea vomiting. No GI symptoms. Past medical history: Hypertension hypercholesterolemia restless leg syndrome, arthritis. Surgical history: Bilateral hip replacement. History hernia repair. Medications reviewed from the chart. Allergies no known drug allergy except intravenous iodine Family history: Father had a history of colon cancer. Mother history of renal failure. Personal history: Nonsmoker, nonalcoholic, full-time working. Functional capacity is normal. Review of system: Noted from the chart. Denies any nausea vomiting, but currently complaining of headache, did not sleep well last night, no chest pain, no shortness of breath noted, denies any diarrhea, but left lower quadrant pain, and also in the leg pain noted on the left side. On examination: Vital signs stable. Chest bilateral good air entry. Regular heart sound nontender abdomen Next images 1+ pedal edema bilaterally noted Patient's labs reviewed Nonspecific CAT scan of the abdomen and pelvis showing evidence of large fusiform aneurysm involving the left common iliac artery beginning at 2 cm at the bifurcation measures 5 cm in diameter by 6 cm in length terminates at the 2 cm from the iliac artery internal. Otherwise unremarkable. Also enlargement of the SFA and popliteal artery on the right side noted Assessment and recommendation: 57-year-old male with a history of hypertension and hypercholesteremia osteoarthritis bilateral hip replacement admitted to the hospital with ongoing pain in the left lower quadrant. Secondary to possibly aneurysm involving the left iliac artery. Patient is currently being seen by the vascular surgery and cardiology. Blood pressure control. IV fluid. Possible intervention surgically. Cardiac clearance. DVT GI prophylaxis will follow-up the patient Patient admitted to the hospital with pain in the left lower quadrant, noted to have left iliac artery aneurysm and need surgical intervention JOHNSON Patient initially was seen by industrial relations specialist, and cardiology workup was done for surgical intervention. Patient underwent a stress test on 01/25/2018. No evidence of any stress-induced ischemia noted Patient was monitored next few days. He underwent surgical intervention on 01/21/2018 Patient had a endovascular stent and the graft of distal aortic aneurysm and bilateral iliac arteries for the tortuous left common iliac aneurysm. Postoperatively patient managed to be Significant bleeding noted. But the postoperative hemoglobin stable. He was also having some difficulty in BM. Improved markedly. Clinically stable. He will be discharged home. Final diagnosis: Left iliac artery aneurysm, status post stenting. Postoperative abdominal Patient also had a history of hypercholesterolemia, hypertension, osteoarthritis , bilateral hip replacement. Clinically patient is stable. Blood pressure slightly on the low side. Educated about the blood pressure monitoring, and medications reviewed with the family and patient. Patient will be discharged home today. He will hold metoprolol, he will continue losartan low-dose 25 mg daily. He will follow-up with the vascular surgery, PMD, and cardiology as an outpatient. Discharge Exam - Head Exam Head Exam: ATRAUMATIC, NORMOCEPHALIC Discharge Plan - Discharge Medications Prescriptions: Ropinirole HCl 0.5 mg PO DAILY #30 tablet - Follow Up Plan Condition: FAIR Disposition: HOME/ ROUTINE Instructions: Muscle and Bone Pain (DC), Ropinirole Additional Instructions: Patient will be discharged home today. He will follow-up with vascular surgeon, and industrial relations specialist, and his primary doctor. He will monitor the blood pressure daily at home. He will start first losartan blood pressure medication. And after he discussed with his PMD he will start the second medication. His blood pressure currently on 120/70. He will continue stool softener. Referrals: Ze Burch MD [Staff Provider] - Jarrell Ivan Jr., MD [Staff Provider] - Emmy Alves MD [Primary Care Provider] -
== END 2018-01-25 15:48 | disposition home or self-care (01) | DRG 110 ==
LOC: SUPCPDRO 19:23 → C.ER 19:23 → C.9E 21:49 → C.3T 22:45 → C.9I 01-21 12:46
PROVIDERS: ADMIT Internal Medicine; ATTEND Internal Medicine
PROC: 04VD3DZ Restriction of Left Common Iliac Artery with Intraluminal Device, Percutaneous Approach (ICD-10-PCS; principal; 2018-01-21 09:30)
DX: I72.3 Aneurysm of iliac artery (principal); E11.51 Type 2 diabetes mellitus with diabetic peripheral angiopathy without gangrene; D62 Acute posthemorrhagic anemia; E78.00 Pure hypercholesterolemia, unspecified; I10 Essential (primary) hypertension; Z87.891 Personal history of nicotine dependence; G25.81 Restless legs syndrome; M19.90 Unspecified osteoarthritis, unspecified site; Z96.643 Presence of artificial hip joint, bilateral

== ENCOUNTER 2018-08-12 09:40 | Outpatient (CLI) | payer MEDICAID | END 2018-08-12 09:41 | disposition home or self-care (01) | LOC: C.VASC 09:40 ==